=== PATIENT | female | born 1995 | race Caucasian/White ===

== ENCOUNTER 2016-07-29 17:11 | Emergency (ER) | payer MEDICARE, MEDICAID ==
[~2016-07-29 17:11] MED LIST: /BUSP5TA; IBUP600T26 PO; augmentin
--- NOTE | 2016-07-29 19:43 | EDDOCDS ---
Nurse's Notes [facility] Name: Jose David Ivory Age: 21 yrs Sex: Female : 1995 Arrival Date: 07/29/2016 Time: 17:11 Bed TR7 Private MD: NO PRIMARY PHYSICIAN, . Diagnosis: Irregular menstruation, unspecified Presentation: 07/29 17:26 Presenting complaint: Patient states: patient states period was 1 day last month and hs1 then reported that she was late this month. Patient reported that she had lots of bleeding earlier today soaking through super tampon last night and found lots of blood in pants when she woke up. Patient concerned that she might be having a miscarriage. Risk factors: The patient reports no loss of conciousness prior to arrival. This patient has not had a hysterectomy. This patient has not begun menopause. Adult Sepsis Screening: The patient does not have new or worsening altered mentation. Patient's respiratory rate is less than 22. Systolic blood pressure is greater than 100. Patient has a qSOFA score of 0- Negative Sepsis Screen. Suicide/Homicide risk assessment- the patient denies having any suicidal and/or homicidal ideations and does not present with any other emotional, behavioral or mental health complaints. Status: Patient is not a residential service technician or dependent. Transition of care: patient was not received from another setting of care. 17:26 Acuity: CA Level 3 hs1 17:26 Method Of Arrival: Walkin/Carried/Asstd hs1 Triage Assessment: 17:30 General: Appears in no apparent distress, Behavior is anxious, cooperative. Pain: hs1 Location: pelvis Pain currently is 5 out of 10 on a pain scale. Quality of pain is described as crampy. HIV screening NA for this visit Offered previously. : Reports vaginal bleeding that is heavy flow. 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 none - PMHx: Schizo-Affective Disorder; - PSHx: none; - Social history: Smoking status: Patient uses tobacco products, heavy tobacco smoker. No barriers to communication noted, The patient speaks fluent Danish, Speaks appropriately for age. - Family history: Not pertinent. - : The pt / caregiver states he / she is not on anticoagulants. Home medication list is obtained from the patient. - Exposure Risk Screening:: None identified. Screenin:41 Screening information is obtained from the patient. Fall risk: No risks identified. pml Assistance ADL's: requires no assistance with activities of daily living. Abuse/DV Screen: The patient / caregiver reports he/she is: not in a situation that causes fear, pain or injury. Nutritional screening: No deficits noted. Advance Directives: Currently, there is no health care proxy. home support is adequate. Assessment: 19:41 General: Appears in no apparent distress, comfortable, Behavior is appropriate for age, pml cooperative. Pain: Location: right lower quadrant and left lower quadrant Pain currently is 5 out of 10 on a pain scale. Neurological: Level of Consciousness is awake, alert, Oriented to person, place, time. Cardiovascular: Capillary refill < 3 seconds. Respiratory: Airway is patent Respiratory effort is even, unlabored. GI: Abdomen is non- distended. : Vaginal discharge is julissa blood. Derm: Skin is pink, warm & dry. Vital Signs: 17:13 BP 115 / 71; Pulse 85; Resp 18 S; Temp 96.8(O); Pulse Ox 99% on R/A; Weight 47.63 kg dd6 (R); Height 5 ft. 3 in. (160.02 cm) (R); 17:13 Body Mass Index 18.60 (47.63 kg, 160.02 cm) dd6 Vitals: 17:13 Log In Time: July 29, 2016 at 17:11. dd6 ED Course: 17:13 Patient visited by Santosh Logan PCA. dd6 17:13 NO PRIMARY PHYSICIAN, . is Private Physician. dd6 17:13 Patient moved to Waiting dd6 17:14 Patient moved to Pre RCE dd6 17:29 Triage Initiated hs1 18:43 Patient moved to Triage 1 ar3 19:00 Will Walton PA-C is PHCP. cc10 19:00 Carl Ferreira MD is Attending Physician. cc10 19:01 Krzysztof Pradhan DO is Attending Physician. cc10 19:02 Patient visited by Will Walton PA-C. cc10 19:02 Patient visited by Will Walton PA-C. cc10 19:38 Taran Vasquez MD is Referral Physician. cc10 19:41 Patient moved to TR7 rashel 19:41 The patient / caregiver is instructed regarding the plan of care and ED course. Patient pml has correct armband on for positive identification. Bed in low position. Call light in reach. 19:41 No IV's were initiated during this patient's visit. No procedures done that require pml assistance. Point of Care Testing: Urine : 19:30 hCG Reading: Negative; Control Reading: Positive; jmb Ranges: Order Results: There are currently no results for this order. Outcome: 19:38 Discharge ordered by Provider. cc10 19:41 Discharge Assessment: Patient awake, alert and oriented x 3. No cognitive and/or pml functional deficits noted. Patient verbalized understanding of disposition instructions. patient administered narcotics - no. The following High Risk Discharge criteria are identified: None. Discharged to home ambulatory. Condition: good Condition: stable. Discharge instructions given to patient, Instructed on discharge instructions, follow up and referral plans. Demonstrated understanding of instructions, Pt was receptive of discharge instructions/ teaching. No special radiology studies were completed. Property sent home with patient. 19:43 Patient left the ED. pml Signatures: Santosh Logan, LUMBER STRAIGHTENED LUMBER STRAIGHTENED dd6 Jacquelyn Díaz, LUMBER STRAIGHTENED LUMBER STRAIGHTENED ar3 Sandy Ozuna RN RN hs1 Roslyn WaldenRN RN Yvon Hernandez RN RN jmb Coniski, Colin, PA-C PA-C cc10 MTDD
--- NOTE | 2016-07-29 19:43 | EDDOCDS ---
Physician Documentation [facility] Name: Jose David Ivory Age: 21 yrs Sex: Female : 1995 Arrival Date: 07/29/2016 Time: 17:11 Bed TR7 Private MD: NO PRIMARY PHYSICIAN, . Disposition: 07/29/16 19:38 Discharged to Home/Self Care. Impression: Irregular menstruation, unspecified. - Condition is Stable. - Discharge Instructions: Menorrhagia. - Medication Reconciliation form. - Follow up: Taran Vasquez MD; When: Call to arrange an appointment; Reason: Wound/Symptom Recheck, Recheck today's complaints, Continuance of care. - Problem is an ongoing problem. - Symptoms are unchanged. Historical: - Allergies: no known allergies; - Home Meds: 1. none - PMHx: Schizo-Affective Disorder; - PSHx: none; - Social history: Smoking status: Patient uses tobacco products, heavy tobacco smoker. No barriers to communication noted, The patient speaks fluent Kyrgyz, Speaks appropriately for age. - Family history: Not pertinent. - : The pt / caregiver states he / she is not on anticoagulants. Home medication list is obtained from the patient. - Exposure Risk Screening:: None identified. 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 3 in. (160.02 cm) (R); 17:13 Body Mass Index 18.60 (47.63 kg, 160.02 cm) dd6 MDM: 19:07 UCG by Nursing ordered. cc10 19:12 Financial registration complete. juan Point of Care Testing: Urine : 19:30 hCG Reading: Negative; Control Reading: Positive; den Ranges: Signatures: Sandy Ozuna RN RN hs1 Roslyn WaldenRN RN pml Will Walton, PA-C PA-C cc10 Clari Mckenna MTDD
--- NOTE | 2016-07-31 20:44 | EDDOCDS ---
Physician Documentation [facility] Name: Jose David Ivory Age: 21 yrs Sex: Female : 1995 Arrival Date: 07/29/2016 Time: 17:11 Bed TR7 Private MD: NO PRIMARY PHYSICIAN, . Disposition: 07/29/16 19:38 Discharged to Home/Self Care. Impression: Irregular menstruation, unspecified. - Condition is Stable. - Discharge Instructions: Menorrhagia. - Medication Reconciliation form. - Follow up: Taran Vasquez MD; When: Call to arrange an appointment; Reason: Wound/Symptom Recheck, Recheck today's complaints, Continuance of care. - Problem is an ongoing problem. - Symptoms are unchanged. Historical: - Allergies: no known allergies; - Home Meds: 1. none - PMHx: Schizo-Affective Disorder; - PSHx: none; - Social history: Smoking status: Patient uses tobacco products, heavy tobacco smoker. No barriers to communication noted, The patient speaks fluent Belarusian, Speaks appropriately for age. - Family history: Not pertinent. - : The pt / caregiver states he / she is not on anticoagulants. Home medication list is obtained from the patient. - Exposure Risk Screening:: None identified. 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 3 in. (160.02 cm) (R); 17:13 Body Mass Index 18.60 (47.63 kg, 160.02 cm) dd6 MDM: 19:07 UCG by Nursing ordered. cc10 19:12 Financial registration complete. b 19:44 [facility] Payment Agreement was scanned into [employer] and attached to record. gjb 07/30 11:15 T-Sheet-- Draft Copy was scanned into [employer] and attached to record. sofia Point of Care Testing: Urine : 07/29 19:30 hCG Reading: Negative; Control Reading: Positive; den Ranges: Signatures: Ayde Mckee, Reg Reg Sandy Sahni, RN RN hs1 Roslyn Walden,RN RN pml Will Walton, PA-C PA-C cc10 Clari Mckenna The chart was reviewed and I authenticate all verbal orders and agree with the evaluation and treatment provided.Attachments: 19:44 [facility] Payment Agreement gjrashel 07/30 11:15 T-Sheet-- Draft Copy gb Chart Complete MTDD
--- NOTE | 2016-07-31 20:44 | EDDOCDS ---
Nurse's Notes [facility] Name: Jose David Ivory Age: 21 yrs Sex: Female : 1995 Arrival Date: 07/29/2016 Time: 17:11 Bed TR7 Private MD: NO PRIMARY PHYSICIAN, . Diagnosis: Irregular menstruation, unspecified Presentation: 07/29 17:26 Presenting complaint: Patient states: patient states period was 1 day last month and hs1 then reported that she was late this month. Patient reported that she had lots of bleeding earlier today soaking through super tampon last night and found lots of blood in pants when she woke up. Patient concerned that she might be having a miscarriage. Risk factors: The patient reports no loss of conciousness prior to arrival. This patient has not had a hysterectomy. This patient has not begun menopause. Adult Sepsis Screening: The patient does not have new or worsening altered mentation. Patient's respiratory rate is less than 22. Systolic blood pressure is greater than 100. Patient has a qSOFA score of 0- Negative Sepsis Screen. Suicide/Homicide risk assessment- the patient denies having any suicidal and/or homicidal ideations and does not present with any other emotional, behavioral or mental health complaints. Status: Patient is not a patient services rep or dependent. Transition of care: patient was not received from another setting of care. 17:26 Acuity: CA Level 3 hs1 17:26 Method Of Arrival: Walkin/Carried/Asstd hs1 Triage Assessment: 17:30 General: Appears in no apparent distress, Behavior is anxious, cooperative. Pain: hs1 Location: pelvis Pain currently is 5 out of 10 on a pain scale. Quality of pain is described as crampy. HIV screening NA for this visit Offered previously. : Reports vaginal bleeding that is heavy flow. 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 none - PMHx: Schizo-Affective Disorder; - PSHx: none; - Social history: Smoking status: Patient uses tobacco products, heavy tobacco smoker. No barriers to communication noted, The patient speaks fluent Wolof, Speaks appropriately for age. - Family history: Not pertinent. - : The pt / caregiver states he / she is not on anticoagulants. Home medication list is obtained from the patient. - Exposure Risk Screening:: None identified. Screenin:41 Screening information is obtained from the patient. Fall risk: No risks identified. pml Assistance ADL's: requires no assistance with activities of daily living. Abuse/DV Screen: The patient / caregiver reports he/she is: not in a situation that causes fear, pain or injury. Nutritional screening: No deficits noted. Advance Directives: Currently, there is no health care proxy. home support is adequate. Assessment: 19:41 General: Appears in no apparent distress, comfortable, Behavior is appropriate for age, pml cooperative. Pain: Location: right lower quadrant and left lower quadrant Pain currently is 5 out of 10 on a pain scale. Neurological: Level of Consciousness is awake, alert, Oriented to person, place, time. Cardiovascular: Capillary refill < 3 seconds. Respiratory: Airway is patent Respiratory effort is even, unlabored. GI: Abdomen is non- distended. : Vaginal discharge is julissa blood. Derm: Skin is pink, warm & dry. Vital Signs: 17:13 BP 115 / 71; Pulse 85; Resp 18 S; Temp 96.8(O); Pulse Ox 99% on R/A; Weight 47.63 kg dd6 (R); Height 5 ft. 3 in. (160.02 cm) (R); 17:13 Body Mass Index 18.60 (47.63 kg, 160.02 cm) dd6 Vitals: 17:13 Log In Time: July 29, 2016 at 17:11. dd6 ED Course: 17:13 Patient visited by Santosh Logan PCA. dd6 17:13 NO PRIMARY PHYSICIAN, . is Private Physician. dd6 17:13 Patient moved to Waiting dd6 17:14 Patient moved to Pre RCE dd6 17:29 Triage Initiated hs1 18:43 Patient moved to Triage 1 ar3 19:00 Will Walton PA-C is PHCP. cc10 19:00 Carl Ferreira MD is Attending Physician. cc10 19:01 Krzysztof Pradhan DO is Attending Physician. cc10 19:02 Patient visited by Will Walton PA-C. cc10 19:02 Patient visited by Will Walton PA-C. cc10 19:38 Taran Vasquez MD is Referral Physician. cc10 19:41 Patient moved to TR7 [facility] 19:41 The patient / caregiver is instructed regarding the plan of care and ED course. Patient pml has correct armband on for positive identification. Bed in low position. Call light in reach. 19:41 No IV's were initiated during this patient's visit. No procedures done that require pml assistance. 19:44 [facility] Payment Agreement was scanned into [employer] and attached to record. gjb 07/30 11:15 T-Sheet-- Draft Copy was scanned into [employer] and attached to record. sofia Point of Care Testing: Urine : 07/29 19:30 hCG Reading: Negative; Control Reading: Positive; jm Ranges: Order Results: There are currently no results for this order. Outcome: 19:38 Discharge ordered by Provider. [facility] 19:41 Discharge Assessment: Patient awake, alert and oriented x 3. No cognitive and/or pml functional deficits noted. Patient verbalized understanding of disposition instructions. patient administered narcotics - no. The following High Risk Discharge criteria are identified: None. Discharged to home ambulatory. Condition: good Condition: stable. Discharge instructions given to patient, Instructed on discharge instructions, follow up and referral plans. Demonstrated understanding of instructions, Pt was receptive of discharge instructions/ teaching. No special radiology studies were completed. Property sent home with patient. 19:43 Patient left the ED. pml Signatures: Ayde Mckee, Reg Reg gb Doreen Santosh, LABORATORY ANIMAL FACILITY SUPERVISOR LABORATORY ANIMAL FACILITY SUPERVISOR dd6 Jacquelyn Díaz, LABORATORY ANIMAL FACILITY SUPERVISOR LABORATORY ANIMAL FACILITY SUPERVISOR ar3 Sandy Ozuna RN RN hs1 Rolsyn Walden RN RN pml Becker, Joshua, RN RN jmb Will Walton, PA-C PA-C [facility] Clari Mckenna Chart Complete MTDD
--- NOTE | 2016-07-31 20:44 | EDDOCDS ---
Physician Documentation [facility] Name: Jose David Ivory Age: 21 yrs Sex: Female : 1995 Arrival Date: 07/29/2016 Time: 17:11 Bed TR7 Private MD: NO PRIMARY PHYSICIAN, . Disposition: 07/29/16 19:38 Discharged to Home/Self Care. Impression: Irregular menstruation, unspecified. - Condition is Stable. - Discharge Instructions: Menorrhagia. - Medication Reconciliation form. - Follow up: Taran Vasquez MD; When: Call to arrange an appointment; Reason: Wound/Symptom Recheck, Recheck today's complaints, Continuance of care. - Problem is an ongoing problem. - Symptoms are unchanged. Historical: - Allergies: no known allergies; - Home Meds: 1. none - PMHx: Schizo-Affective Disorder; - PSHx: none; - Social history: Smoking status: Patient uses tobacco products, heavy tobacco smoker. No barriers to communication noted, The patient speaks fluent Ukrainian, Speaks appropriately for age. - Family history: Not pertinent. - : The pt / caregiver states he / she is not on anticoagulants. Home medication list is obtained from the patient. - Exposure Risk Screening:: None identified. 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 3 in. (160.02 cm) (R); 17:13 Body Mass Index 18.60 (47.63 kg, 160.02 cm) dd6 MDM: 19:07 UCG by Nursing ordered. cc10 19:12 Financial registration complete. b 19:44 [facility] Payment Agreement was scanned into [employer] and attached to record. gjb 07/30 11:15 T-Sheet-- Draft Copy was scanned into [employer] and attached to record. sofia Point of Care Testing: Urine : 07/29 19:30 hCG Reading: Negative; Control Reading: Positive; den Ranges: Signatures: Ayde Mckee, Reg Reg Sandy Sahni, RN RN hs1 Roslyn Walden,RN RN pml Will Walton, PA-C PA-C cc10 Clari Mckenna The chart was reviewed and I authenticate all verbal orders and agree with the evaluation and treatment provided.Attachments: 19:44 [facility] Payment Agreement gjrashel 07/30 11:15 T-Sheet-- Draft Copy gb Chart Complete MTDD
== END 2016-07-29 19:43 | disposition home or self-care (01) ==
LOC: M ED 17:11
DX: N92.0 Excessive and frequent menstruation with regular cycle (principal); F25.9 Schizoaffective disorder, unspecified; F17.200 Nicotine dependence, unspecified, uncomplicated

== ENCOUNTER 2016-09-15 12:54 | Emergency (ER) | payer MEDICARE, MEDICAID ==
[~2016-09-15] VITALS: Ht 160 cm; Wt 54.4 kg
[2016-09-15 15:36] VITALS: BP 107/67
--- NOTE | 2016-09-16 07:37 | REP ---
Pain after trauma. PRIORS: None. FINDINGS: There is no acute fracture, dislocation, subluxation or joint effusion. Signed by Yoni Muñoz DO 09/16/2016 12:05 P
== END 2016-09-15 15:37 | disposition home or self-care (01) ==
LOC: M ED 15:21
DX: S50.02XA Contusion of left elbow, initial encounter (principal); Y04.8XXA Assault by other bodily force, initial encounter; Y92.098 Other place in other non-institutional residence as the place of occurrence of the external cause; Y93.89 Activity, other specified; Y99.8 Other external cause status; F17.200 Nicotine dependence, unspecified, uncomplicated

== ENCOUNTER 2016-11-27 11:00 | Emergency (ER) | payer MEDICARE, MEDICAID ==
[~2016-11-27] VITALS: Ht 160 cm; Wt 47.6 kg
[2016-11-27] MEDS ORDERED: METOCLOPRAMIDE 10 MG TAB PO ONE (12:30)
[2016-11-27] MEDS ORDERED: ONDANSETRON 4 MG ORAL DISINTEGRATING TAB (S0181) PO ONE (12:30)
[2016-11-27 12:36] VITALS: BP 103/71
[2016-11-27] MEDS ORDERED: REGL10TA6 PO (12:40)
== END 2016-11-27 12:46 | disposition home or self-care (01) ==
LOC: M ED 12:36
DX: R11.2 Nausea with vomiting, unspecified (principal); Z32.01 Encounter for pregnancy test, result positive; F41.9 Anxiety disorder, unspecified; F17.210 Nicotine dependence, cigarettes, uncomplicated

== ENCOUNTER → 2016-11-28 | Outpatient (REF) | payer MEDICARE, MEDICAID ==
[~2016-11-28] MED LIST changes: +REGL10TA6 PO
[2016-11-28 17:19] LABS: MEAN CORPUSCULAR HEMOGLOBIN 32.4 pg (27.0-33.0); RED CELL DISTRIBUTION WIDTH 12.3 % (11.5-14.5); WHITE BLOOD COUNT 7.9 K/mm3 (4.0-10.0)
[2016-11-28 19:27] LABS: HCG, SERUM QUANTITATIVE 29903 MIU/ML
== END ==
LOC: M LAB REF 16:35
PROVIDERS: ATTEND Obstetrics & Gynecology
DX: O36.80X0 Pregnancy with inconclusive fetal viability, not applicable or unspecified (principal); Z3A.00 Weeks of gestation of pregnancy not specified

== ENCOUNTER → 2017-01-08 | Outpatient (REF) | payer MEDICARE, MEDICAID ==
[~2017-01-08] MED LIST changes: +NITR100C2
== END ==
LOC: M LAB REF 16:48
PROVIDERS: ATTEND Advanced Practice Midwife
DX: Z34.91 Encounter for supervision of normal pregnancy, unspecified, first trimester (principal); Z79.899 Other long term (current) drug therapy

== ENCOUNTER → 2017-02-05 | Outpatient (REF) | payer MEDICARE, MEDICAID | LOC: M LAB REF 16:35 | PROVIDERS: ATTEND Obstetrics & Gynecology | DX: Z34.81 Encounter for supervision of other normal pregnancy, first trimester (principal); Z79.899 Other long term (current) drug therapy ==

== ENCOUNTER 2017-02-12 22:10 | Emergency (ER) | payer MEDICARE, MEDICAID ==
[~2017-02-12] VITALS: Ht 160 cm; Wt 45.8 kg
[~2017-02-12 22:10] MED LIST changes: -NITR100C2
[2017-02-12] MEDS ORDERED: NITR100C2 (22:20)
[2017-02-12] MEDS ORDERED: METOCLOPRAMIDE INJ 10MG/2ML VIAL (J2765) IV ONE (22:45)
[2017-02-12] MEDS ORDERED: diphenhydrAMINE INJ 50MG/ML VIAL (J1200) IV ONE (22:45)
[2017-02-12] MEDS ORDERED: NS 1,000 ML IV ONE (22:45)
[2017-02-12 23:07] LABS: ADD MANUAL DIFFER YES; MEAN CORPUSCULAR HEMOGLOBIN 32.8 pg (27.0-33.0); MEAN CORPUSCULAR VOLUME 93.6 fl (80.0-96.0); PLATELET COUNT, AUTOMATED 265 k/mm3 (150-450); RED CELL DISTRIBUTION WIDTH 13.9 % (11.5-14.5); WHITE BLOOD COUNT 12.9 K/mm3 (4.0-10.0)
[2017-02-12 23:37] LABS: ALBUMIN 3.6 GM/DL (3.2-5.2); ALKALINE PHOSPHATASE 59 U/L (45-117); ALT/SGPT 29 U/L (12-78); AMYLASE 56 U/L (25-115); ANION GAP 9 MEQ/L (8-16); AST/SGOT 18 U/L (15-37); BILIRUBIN,DIRECT 0.2 MG/DL (0.0-0.2); BLOOD UREA NITROGEN 11 MG/DL (7-18); CALCIUM LEVEL 8.8 MG/DL (8.5-10.1); CARBON DIOXIDE LEVEL 24 MEQ/L (21-32); CHLORIDE LEVEL 105 MEQ/L (98-107); CREATININE FOR GFR 0.64 MG/DL (0.55-1.02); GLOMERULAR FILTRATION RATE > 60.0 (>60); GLUCOSE, FASTING 83 MG/DL (70-105); POTASSIUM SERUM 4.2 MEQ/L (3.5-5.1); SODIUM LEVEL 138 MEQ/L (136-145); TOTAL PROTEIN 7.6 GM/DL (6.4-8.2)
[2017-02-12] MEDS ORDERED: REGL10TA6 PO (23:51)
[2017-02-12 23:57] VITALS: BP 102/60
== END 2017-02-13 00:02 | disposition home or self-care (01) ==
LOC: M ED 22:10
DX: O21.9 Vomiting of pregnancy, unspecified (principal); Z3A.17 17 weeks gestation of pregnancy; O99.342 Other mental disorders complicating pregnancy, second trimester; F41.9 Anxiety disorder, unspecified; Z79.899 Other long term (current) drug therapy
CPT/HCPCS: 80048; 80076; 81001; 82150; 83690; 85025; 87086; 96374; 96375; 99283; J1200; J2765

== ENCOUNTER → 2017-04-16 | Outpatient (CLI) | payer MEDICARE, MEDICAID ==
[~2017-04-16] MED LIST changes: +NITR100C2
[2017-04-16 16:30] LABS: MEAN CORPUSCULAR HEMOGLOBIN 32.2 pg (27.0-33.0); MEAN CORPUSCULAR HGB CONC 34.5 g/dl (32.0-36.5); MEAN CORPUSCULAR VOLUME 93.4 fl (80.0-96.0); RED CELL DISTRIBUTION WIDTH 13.1 % (11.5-14.5)
== END ==
LOC: M LAB 14:56
PROVIDERS: ATTEND Obstetrics & Gynecology
DX: Z34.82 Encounter for supervision of other normal pregnancy, second trimester (principal)
CPT/HCPCS: 36415; 82950; 85027; 86850; 86901; J2790

== ENCOUNTER → 2017-04-30 | Outpatient (REF) | payer MEDICARE, MEDICAID | LOC: M LAB REF 16:35 | PROVIDERS: ATTEND Obstetrics & Gynecology | DX: Z41.8 Encounter for other procedures for purposes other than remedying health state (principal); Z79.899 Other long term (current) drug therapy ==

== ENCOUNTER → 2017-06-26 | Outpatient (REF) | payer MEDICARE, MEDICAID | LOC: M LAB REF 16:35 | PROVIDERS: ATTEND Obstetrics & Gynecology | DX: Z34.83 Encounter for supervision of other normal pregnancy, third trimester (principal); Z3A.36 36 weeks gestation of pregnancy ==

== ENCOUNTER 2017-07-08 07:56 | Inpatient (IN) | payer MEDICARE, MEDICAID ==
[2017-07-08] MEDS ORDERED: LR 1,000 ML IV (08:24)
[2017-07-08] MEDS: LACTATED RINGER'S 1000 ML IV (08:24)
[2017-07-08] MEDS ORDERED: OXYTOCIN 30 UNITS IN 0.9% NaCl 500ML IV BAG (J2590) As Ordered (08:59)
[2017-07-08] MEDS: PRENATAL VITAMINS CHEWABLE TABLET PO (09:00)
[2017-07-08 09:02] LABS: BASO % 0.1 % (0.0-1.0); EOS % 0.1 % (0.0-3.0); HEMATOCRIT 35.6 % (36.0-47.0); HEMOGLOBIN 11.7 g/dl (12.0-16.0); IMMATURE GRANULOCYTE # 0.1 10^3/uL (0-0); IMMATURE GRANULOCYTE % 0.5 % (0-0); LYMPH # 1.8 10^3/uL (1.5-6.5); LYMPH % 12.4 % (24.0-44.0); MEAN CORPUSCULAR HEMOGLOBIN 27.9 pg (27.0-33.0); MEAN CORPUSCULAR HGB CONC 32.9 g/dl (32.0-36.5); MONO # 0.7 10^3/uL (0.0-0.8); MONO % 5.1 % (0.0-5.0); NEUTROPHILS # 11.5 10^3/uL (1.8-7.7); NEUTROPHILS % 81.8 % (36.0-66.0); PLATELET COUNT, AUTOMATED 194 10^3/uL (150-450); RED BLOOD COUNT 4.19 10^6/uL (4.00-5.40); RED CELL DISTRIBUTION WIDTH 13.9 % (11.5-14.5); WHITE BLOOD COUNT 14.1 10^3/uL (4.0-10.0)
[2017-07-08 09:22] LABS: AMPHETAMINES URINE REFLEX NEGATIVE (NEGATIVE); BARBITURATES URINE REFLEX NEGATIVE (NEGATIVE); BENZODIAZEPINES URINE REFLEX NEGATIVE (NEGATIVE); CANNABINOIDS URINE REFLEX NEGATIVE (NEGATIVE); COCAINE METABOLITE URINE REFLE NEGATIVE (NEGATIVE); METHADONE URINE REFLEX NEGATIVE (NEGATIVE); OPIATES URINE REFLEX NEGATIVE (NEGATIVE); PHENCYCLIDINE URINE REFLEX NEGATIVE (NEGATIVE)
[2017-07-08] MEDS ORDERED: FENTANYL 2MCG/ML ROPIVACAINE 0.2% IN 0.9% NACL 200ML IVBAG As Ordered (10:49)
[2017-07-08] MEDS: OXYTOCIN DRIP 30 UNITS in APPROPRIATE DILUENT 1 EA IV (11:27)
[2017-07-08] MEDS ORDERED: DIBUCAINE 1% OINTMENT 30GM TOP (11:30)
[2017-07-08] MEDS ORDERED: METHYLERGONOVINE MALEATE 0.2 MG TAB PO (11:30)
[2017-07-08] MEDS ORDERED: MEASLES,MUMPS,RUBELLA VACCINE INJ (MMR-II) (90707) SC (11:30)
[2017-07-08] MEDS: IBUPROFEN 800 MG TAB PO ×2 (13:11→23:04)
[2017-07-08 14:51] LABS: FETAL SCREEN PROF. 1 1
[2017-07-08] MEDS: RHOGAM 300 MCG (1500 IU) INJ (J2790) IM (15:06)
[2017-07-09] MEDS: ACETAMINOPHEN 500 MG TAB PO (05:43)
[2017-07-09] MEDS: IBUPROFEN 800 MG TAB PO ×2 (08:20→19:35)
[2017-07-09] MEDS: PRENATAL VITAMINS CHEWABLE TABLET PO (08:20)
[2017-07-09] MEDS: DOCUSATE SODIUM 100 MG CAP PO (22:30)
[2017-07-10] MEDS: IBUPROFEN 800 MG TAB PO ×2 (03:40→08:20)
[2017-07-10] MEDS: PRENATAL VITAMINS CHEWABLE TABLET PO (08:19)
[2017-07-10] MEDS: ACETAMINOPHEN 500 MG TAB PO (08:28)
== END 2017-07-10 10:50 | disposition home or self-care (01) | DRG 775 ==
LOC: M LDO 07:56 → M LDI 08:16 → M OBS 13:34
PROVIDERS: Obstetrics & Gynecology
PROC: 10E0XZZ Delivery of Products of Conception, External Approach (ICD-10-PCS; principal; 2017-07-08)
DX: O62.3 Precipitate labor (principal); O99.334 Smoking (tobacco) complicating childbirth; F17.210 Nicotine dependence, cigarettes, uncomplicated; Z3A.37 37 weeks gestation of pregnancy; Z37.0 Single live birth

== ENCOUNTER 2017-08-21 01:57 | Emergency (ER) | payer MEDICARE, MEDICAID | END 2017-08-21 05:01 | disposition left against medical advice (07) | LOC: M ED 01:57 | DX: Z53.29 Procedure and treatment not carried out because of patient's decision for other reasons (principal) ==

== ENCOUNTER 2017-10-01 06:19 | Emergency (ER) | payer MEDICARE, MEDICAID ==
[2017-10-01] MEDS: NS 1,000 ML IV (06:45)
[2017-10-01] MEDS: METOCLOPRAMIDE INJ 10MG/2ML VIAL (J2765) IV ×2 (06:56→08:49)
[2017-10-01 07:06] LABS: BASO # 0.1 10^3/uL (0.0-0.2); BASO % 0.5 % (0.0-1.0); HEMATOCRIT 40.5 % (36.0-47.0); HEMOGLOBIN 14.3 g/dl (12.0-16.0); IMMATURE GRANULOCYTE % 0.3 % (0-3.0); LYMPH # 2.1 10^3/uL (1.5-6.5); LYMPH % 21.3 % (24.0-44.0); MEAN CORPUSCULAR HEMOGLOBIN 28.7 pg (27.0-33.0); MEAN CORPUSCULAR HGB CONC 35.3 g/dl (32.0-36.5); MEAN CORPUSCULAR VOLUME 81.3 fl (80.0-96.0); MONO # 0.6 10^3/uL (0.0-0.8); MONO % 5.6 % (0.0-5.0); NEUTROPHILS # 7.3 10^3/uL (1.8-7.7); NEUTROPHILS % 72.3 % (36.0-66.0); PLATELET COUNT, AUTOMATED 336 10^3/uL (150-450); RED BLOOD COUNT 4.98 10^6/uL (4.00-5.40); RED CELL DISTRIBUTION WIDTH 14.1 % (11.5-14.5); WHITE BLOOD COUNT 10.1 10^3/uL (4.0-10.0)
[2017-10-01 07:14] LABS: APPEARANCE, URINE CLEAR (CLEAR); BACTERIA, URINE AUTO 1+ (NEGATIVE); BILIRUBIN, URINE AUTO NEGATIVE (NEGATIVE); BLOOD, URINE BLOOD 1+ (NEGATIVE); COLOR, URINE YELLOW (YELLOW); GLUCOSE, URINE (UA) AUTO NEGATIVE (NEGATIVE); KETONE, URINE AUTO TRACE mg/dL (NEGATIVE); LEUKOCYTE ESTERASE, URINE AUTO NEGATIVE (NEGATIVE); MUCUS, URINE SMALL (NEGATIVE); NITRITE, URINE AUTO NEGATIVE (NEGATIVE); PROTEIN, URINE AUTO 1+ mg/dL (NEGATIVE); RBC, URINE AUTO 1 /HPF (0-3); SPECIFIC GRAVITY URINE AUTO 1.023 (1.002-1.035); SQUAMOUS EPITHELIAL CELL UR AU 3 /HPF (0-6); WBC, URINE AUTO 2 /HPF (0-3)
[2017-10-01 07:16] LABS: CONTROL LINE HCG INT CTR LINE PRESENT; HCG, SERUM QUALITATIVE NEGATIVE (NEGATIVE)
[2017-10-01 07:24] LABS: ALBUMIN 4.6 GM/DL (3.2-5.2); ALBUMIN/GLOBULIN RATIO 1.21 (1.00-1.93); ALKALINE PHOSPHATASE 66 U/L (45-117); ALT/SGPT 55 U/L (12-78); ANION GAP 9 MEQ/L (8-16); AST/SGOT 25 U/L (7-37); BILIRUBIN,DIRECT 0.2 MG/DL (0.0-0.2); BLOOD UREA NITROGEN 8 MG/DL (7-18); CALCIUM LEVEL 9.6 MG/DL (8.5-10.1); CARBON DIOXIDE LEVEL 21 MEQ/L (21-32); CHLORIDE LEVEL 112 MEQ/L (98-107); GLOMERULAR FILTRATION RATE > 60.0 (>60); GLUCOSE, FASTING 103 MG/DL (70-100); LIPASE 70 U/L (73-393); POTASSIUM SERUM 4.1 MEQ/L (3.5-5.1); SODIUM LEVEL 142 MEQ/L (136-145); TOTAL PROTEIN 8.4 GM/DL (6.4-8.2)
== END 2017-10-01 10:07 | disposition home or self-care (01) ==
LOC: M ED 06:19
DX: K52.9 Noninfective gastroenteritis and colitis, unspecified (principal); E86.9 Volume depletion, unspecified; F17.200 Nicotine dependence, unspecified, uncomplicated; Z79.899 Other long term (current) drug therapy
CPT/HCPCS: J2765

== ENCOUNTER → 2018-04-06 | Outpatient (CLI) | payer MEDICARE, MEDICAID ==
[2018-04-06 18:25] LABS: HCG, SERUM QUANTITATIVE < 1.0 MIU/ML
== END ==
LOC: M SMT 13:49
DX: N93.9 Abnormal uterine and vaginal bleeding, unspecified (principal); Z11.2 Encounter for screening for other bacterial diseases
CPT/HCPCS: 84702

== ENCOUNTER → 2018-04-06 | Outpatient (REF) | payer MEDICARE, MEDICAID ==
[2018-04-07 08:03] LABS: CHLAMYDIA DNA AMPLIFICATION NEGATIVE (NEGATIVE); GC DNA AMPLIFICATION NEGATIVE (NEGATIVE)
== END ==
LOC: M LAB REF 17:49
DX: N93.9 Abnormal uterine and vaginal bleeding, unspecified (principal); Z11.2 Encounter for screening for other bacterial diseases

== ENCOUNTER → 2018-06-08 | Outpatient (CLI) | payer MEDICARE, OTHER, MEDICAID | LOC: M RAD 12:35 | DX: R93.7 Abnormal findings on diagnostic imaging of other parts of musculoskeletal system (principal); M25.532 Pain in left wrist | CPT/HCPCS: 73221 ==

== ENCOUNTER 2018-07-21 21:23 | Emergency (ER) | payer MEDICARE ==
[~2018-07-21] VITALS: Ht 160 cm; Wt 44.7 kg
[~2018-07-21 21:23] MED LIST changes: +IBUP-1114 PO; +MAPA500T2 PO; +PRENTAB9 PO
[2018-07-21 22:23] LABS: HEMATOCRIT 35.8 % (36.0-47.0); HEMOGLOBIN 12.8 g/dl (12.0-15.5); MEAN CORPUSCULAR HEMOGLOBIN 31.1 pg (27.0-33.0); MEAN CORPUSCULAR HGB CONC 35.8 g/dl (32.0-36.5); MEAN CORPUSCULAR VOLUME 86.9 fl (80.0-96.0); PLATELET COUNT, AUTOMATED 213 10^3/uL (150-450); RED BLOOD COUNT 4.12 10^6/uL (4.00-5.40); WHITE BLOOD COUNT 7.4 10^3/uL (4.0-10.0)
[2018-07-21] MEDS ORDERED: HYDR-643 (22:30)
[2018-07-21] MEDS ORDERED: SERT-155 (22:30)
[2018-07-21 22:34] LABS: INR 1.07
[2018-07-22] MEDS ORDERED: RHOGAM 300 MCG (1500 IU) INJ (J2790) IM ONE (00:15)
[2018-07-22 00:45] VITALS: BP 97/58
--- NOTE | 2018-07-22 00:57 | REPVR ---
EXAM: US First Trimester, Transabdominal and US , Transvaginal EXAM DATE/TIME: 07/21/2018 12:04 AM CLINICAL HISTORY: 23 years old, female; Signs and symptoms; Lmp or gestational age (in weeks): 06/07/18; Antepartum complications; Bleeding; TECHNIQUE: Real-time sonographic evaluation of the gravid uterus and its contents was performed. COMPARISON: No relevant prior studies available. FINDINGS: There is a single intrauterine gestation. The embryonic heart rate was measured at 106 beats per minute. The mean crown-rump length is 0.3 cm, corresponding to an estimated gestational age of 5 weeks, 6 days. The estimated gestational age based on the last menstrual period (06/07/2018) is 6 weeks, 2 days. The sonographic estimated date of delivery is 03/17/2019. Both maternal ovaries are identified and demonstrate blood flow on Doppler interrogation. The right ovary measures 2.8 x 2.7 x 2.7 cm and the left ovary measures 2.3 x 1.6 x 1.9 cm. There is a 2.2 x 1.9 x 1.7 cm complex cystic lesion in the right ovary, suggestive of a corpus luteum. There is no adnexal mass. No free fluid is seen in the pelvis. IMPRESSION: Single viable intrauterine gestation with an estimated gestational age of 5 weeks, 6 days. Recommend continued clinical and ultrasound surveillance, as clinically indicated. Electronically signed by: Kings Lei On 07/22/2018 00:57:02 AM
== END 2018-07-22 00:45 | disposition home or self-care (01) ==
LOC: M ED 21:23
DX: O20.0 Threatened abortion (principal); Z3A.01 Less than 8 weeks gestation of pregnancy; Z79.899 Other long term (current) drug therapy
CPT/HCPCS: 76801; 76817; 84702; 85027; 85610; 86850; 86900; 86901; 93976; 96372; 99283; J2790

== ENCOUNTER → 2018-07-23 | Outpatient (CLI) | payer MEDICARE, MEDICAID ==
[~2018-07-23] MED LIST changes: +HYDR-643; +SERT-155
== END ==
LOC: M LAB 16:41
PROVIDERS: ATTEND Nurse Practitioner Family
DX: O20.0 Threatened abortion (principal)

== ENCOUNTER → 2018-08-28 | Outpatient (CLI) | payer MEDICARE, MEDICAID ==
[2018-08-28 15:02] LABS: BASO % 0.5 % (0.0-1.0); EOS % 0.5 % (0.0-3.0); HEMATOCRIT 35.2 % (36.0-47.0); HEMOGLOBIN 12.2 g/dl (12.0-15.5); LYMPH # 1.9 10^3/uL (1.5-6.5); LYMPH % 22.9 % (24.0-44.0); MEAN CORPUSCULAR HEMOGLOBIN 31.8 pg (27.0-33.0); MEAN CORPUSCULAR HGB CONC 34.7 g/dl (32.0-36.5); MEAN CORPUSCULAR VOLUME 91.7 fl (80.0-96.0); MONO # 0.5 10^3/uL (0.0-0.8); MONO % 6.4 % (0.0-5.0); NEUTROPHILS # 5.7 10^3/uL (1.8-7.7); NEUTROPHILS % 69.2 % (36.0-66.0); PLATELET COUNT, AUTOMATED 281 10^3/uL (150-450); RED BLOOD COUNT 3.84 10^6/uL (4.00-5.40); WHITE BLOOD COUNT 8.3 10^3/uL (4.0-10.0)
[2018-08-28 16:14] LABS: HEPATITIS C VIRUS ABY INDEX < 0.0 INDEX (<0.8); HIV 1&2 SCREEN CENTAUR NEGATIVE (NEGATIVE); RUBELLA IgG QUALITATIVE IMMUNE (IMMUNE)
[2018-08-28 16:36] LABS: CHLAMYDIA DNA AMPLIFICATION NEGATIVE (NEGATIVE); GC DNA AMPLIFICATION NEGATIVE (NEGATIVE)
== END ==
LOC: M LAB 14:17
PROVIDERS: ATTEND Obstetrics & Gynecology
DX: Z34.80 Encounter for supervision of other normal pregnancy, unspecified trimester (principal); Z3A.08 8 weeks gestation of pregnancy

== ENCOUNTER → 2018-09-08 | Outpatient (REF) | payer MEDICARE, MEDICAID | LOC: M LAB REF 17:08 | PROVIDERS: ATTEND Obstetrics & Gynecology | DX: R30.0 Dysuria (principal) ==

== ENCOUNTER 2018-09-14 16:22 | Emergency (ER) | payer MEDICARE, MEDICAID ==
[~2018-09-14] VITALS: Ht 160 cm; Wt 51.4 kg
[2018-09-14 18:54] LABS: BASO % 0.1 % (0.0-1.0); HEMATOCRIT 31.7 % (36.0-47.0); HEMOGLOBIN 11.3 g/dl (12.0-15.5); LYMPH # 0.6 10^3/uL (1.5-6.5); LYMPH % 4.3 % (24.0-44.0); MEAN CORPUSCULAR HEMOGLOBIN 32.8 pg (27.0-33.0); MEAN CORPUSCULAR HGB CONC 35.6 g/dl (32.0-36.5); MEAN CORPUSCULAR VOLUME 91.9 fl (80.0-96.0); MONO # 1.1 10^3/uL (0.0-0.8); MONO % 7.9 % (0.0-5.0); NEUTROPHILS # 12.1 10^3/uL (1.8-7.7); NEUTROPHILS % 87.1 % (36.0-66.0); PLATELET COUNT, AUTOMATED 226 10^3/uL (150-450); RED BLOOD COUNT 3.45 10^6/uL (4.00-5.40); WHITE BLOOD COUNT 13.9 10^3/uL (4.0-10.0)
[2018-09-14 19:25] LABS: ALT/SGPT 14 U/L (12-78); BILIRUBIN,TOTAL 1.2 MG/DL (0.2-1.0); BLOOD UREA NITROGEN 7 MG/DL (7-18); CALCIUM LEVEL 8.4 MG/DL (8.5-10.1); CARBON DIOXIDE LEVEL 25 MEQ/L (21-32); CHLORIDE LEVEL 104 MEQ/L (98-107); CREATININE FOR GFR 0.65 MG/DL (0.55-1.30); GLOMERULAR FILTRATION RATE > 60.0 (>60); GLUCOSE, FASTING 87 MG/DL (70-100); POTASSIUM SERUM 3.6 MEQ/L (3.5-5.1); SODIUM LEVEL 137 MEQ/L (136-145); TOTAL PROTEIN 6.5 GM/DL (6.4-8.2)
[2018-09-14] MEDS ORDERED: ONDANSETRON 4 MG ORAL DISINTEGRATING TAB (Q0162 PER 1MG) PO ONE (19:45)
[2018-09-14] MEDS ORDERED: CEPHALEXIN 500 MG CAP PO ONE (19:45)
[2018-09-14 19:55] VITALS: BP 91/55
[2018-09-17] MEDS ORDERED: KEFL500C17 PO (04:59)
[2018-09-17] MEDS ORDERED: PROC25SU24 PR (10:32)
[2018-09-17] MEDS ORDERED: PROM12.56 PO (10:34)
== END 2018-09-14 20:01 | disposition home or self-care (01) ==
LOC: M ED 16:22
DX: O23.41 Unspecified infection of urinary tract in pregnancy, first trimester (principal); Z3A.13 13 weeks gestation of pregnancy
CPT/HCPCS: 36415; 80053; 81001; 85025; 87088; 87186; 99283; Q0162

== ENCOUNTER → 2018-10-01 | Outpatient (REF) | payer MEDICARE, MEDICAID ==
[~2018-10-01] MED LIST changes: +KEFL500C17 PO; +PROC25SU24 PR; +PROM12.56 PO
== END ==
LOC: M LAB REF 17:22
PROVIDERS: ATTEND Obstetrics & Gynecology
DX: Z34.82 Encounter for supervision of other normal pregnancy, second trimester (principal); Z3A.00 Weeks of gestation of pregnancy not specified

== ENCOUNTER → 2018-10-13 | Outpatient (CLI) | payer MEDICARE, MEDICAID ==
--- NOTE | 2018-10-14 04:28 | REP ---
Clinical: Anatomical evaluation. Comparison: 07/21/2018 . Findings: Examination demonstrates a single live intrauterine in cephalic presentation. motion is identified by technologist. Placenta is noted anterior and grade grade zero without evidence for placenta previa or abruption. Amniotic fluid volume is normal. Cervix measures 4.4 cm in length and appears closed. No evidence for nuchal cord. Gestational age by LMP 18 weeks 2 days with TRICIA 03/14/2019 Gestational age by current measurements 18 weeks 0 days with TRICIA 03/16/2019 . FHR equals 153 beats per minute. BPD 3.7 cm 17 weeks 2 days HC 14.8 cm 18 weeks 0 days AC 13.0 cm 18 weeks 4 days FL 2.8 cm 18 weeks 4 days HC/AC ratio 1.14 Estimated weight 239 grams ( 51st percentile). Anatomical assessment demonstrates normal structures including cranium, choroid plexus, cavum, cerebellum/posterior fossa, facial features, lungs, four-chamber heart/ventricular outflow tracts, diaphragm, stomach, cord insertion/three-vessel cord, kidneys/bladder, spine, and extremities. Impression: Single live intrauterine in cephalic presentation demonstrating appropriate interval growth. Anatomical assessment is complete and normal. No gross abnormalities are identified.
== END ==
LOC: M WHC 14:05
PROVIDERS: ATTEND Obstetrics & Gynecology
DX: Z34.82 Encounter for supervision of other normal pregnancy, second trimester (principal); Z3A.18 18 weeks gestation of pregnancy

== ENCOUNTER → 2018-10-28 | Outpatient (REF) | payer MEDICARE, MEDICAID | LOC: M LAB REF 17:30 | PROVIDERS: ATTEND Advanced Practice Midwife | DX: Z34.82 Encounter for supervision of other normal pregnancy, second trimester (principal); Z3A.00 Weeks of gestation of pregnancy not specified ==

== ENCOUNTER → 2018-12-16 | Outpatient (CLI) | payer MEDICARE, MEDICAID ==
[2018-12-16 15:35] LABS: HEMATOCRIT 28.8 % (36.0-47.0); HEMOGLOBIN 9.8 g/dl (12.0-15.5); MEAN CORPUSCULAR HEMOGLOBIN 31.8 pg (27.0-33.0); MEAN CORPUSCULAR VOLUME 93.5 fl (80.0-96.0); PLATELET COUNT, AUTOMATED 192 10^3/uL (150-450); RED BLOOD COUNT 3.08 10^6/uL (4.00-5.40); WHITE BLOOD COUNT 9.1 10^3/uL (4.0-10.0)
== END ==
LOC: M LAB 13:52
PROVIDERS: ATTEND Obstetrics & Gynecology
DX: Z34.82 Encounter for supervision of other normal pregnancy, second trimester (principal); Z3A.00 Weeks of gestation of pregnancy not specified
CPT/HCPCS: 36415; 82950; 85027; 86850; 86900; 86901; 87088; 87186; J2790

== ENCOUNTER → 2019-01-06 | Outpatient (REF) | payer MEDICARE, MEDICAID | LOC: M LAB REF 16:53 | PROVIDERS: ATTEND Advanced Practice Midwife | DX: Z34.03 Encounter for supervision of normal first pregnancy, third trimester (principal) ==

== ENCOUNTER → 2019-02-10 | Outpatient (REF) | payer MEDICARE, MEDICAID | LOC: M LAB REF 17:05 | PROVIDERS: ATTEND Advanced Practice Midwife | DX: Z34.83 Encounter for supervision of other normal pregnancy, third trimester (principal) ==

== ENCOUNTER → 2019-02-16 | Outpatient (REF) | payer MEDICARE, MEDICAID | LOC: M LAB REF 18:04 | PROVIDERS: ATTEND Advanced Practice Midwife | DX: Z34.83 Encounter for supervision of other normal pregnancy, third trimester (principal); Z3A.00 Weeks of gestation of pregnancy not specified ==

== ENCOUNTER 2019-02-24 03:03 | Outpatient (CLI) | payer MEDICARE, MEDICAID ==
[~2019-02-24] VITALS: Ht 160 cm; Wt 51.8 kg
[2019-02-24 03:38] VITALS: BP 107/71
[2019-02-24 06:48] VITALS: BP 101/56
== END 2019-02-24 07:25 | disposition home or self-care (01) ==
LOC: M LDO 03:03
PROVIDERS: ATTEND Obstetrics & Gynecology
DX: O26.893 Other specified pregnancy related conditions, third trimester (principal); O47.03 False labor before 37 completed weeks of gestation, third trimester; Z3A.37 37 weeks gestation of pregnancy

== ENCOUNTER 2019-03-03 14:28 | Inpatient (IN) | payer MEDICARE, MEDICAID ==
[2019-03-03] VITALS (10 sets, daily range): BP systolic 95–117; BP diastolic 56–88
[~2019-03-03] VITALS: Ht 160 cm; Wt 52.3 kg
[2019-03-03] MEDS ORDERED: LR 1,000 ML IV SCH (17:01)
[2019-03-03] MEDS ORDERED: OXYTOCIN DRIP 30 UNITS in APPROPRIATE DILUENT 1 EA IV SCH ×2 (17:15→20:26)
[2019-03-03 17:43] LABS: HEMOGLOBIN 10.5 g/dl (12.0-15.5); MEAN CORPUSCULAR HEMOGLOBIN 28.2 pg (27.0-33.0); MEAN CORPUSCULAR HGB CONC 32.8 g/dl (32.0-36.5); MEAN CORPUSCULAR VOLUME 85.8 fl (80.0-96.0); PLATELET COUNT, AUTOMATED 235 10^3/uL (150-450); RED BLOOD COUNT 3.73 10^6/uL (4.00-5.40); WHITE BLOOD COUNT 8.2 10^3/uL (4.0-10.0)
[2019-03-03] MEDS ORDERED: BUTORPHANOL 2 MG/ML INJ (J0595) IV ONE (18:00)
[2019-03-03] MEDS ORDERED: PROMETHAZINE INJ 25 MG/ML VIAL (J2550) IV ONE (18:00)
[2019-03-03] MEDS ORDERED: METHYLERGONOVINE MALEATE 0.2 MG TAB PO PRN (20:30)
[2019-03-03] MEDS ORDERED: ACETAMINOPHEN 500 MG TAB PO PRN (20:30)
[2019-03-03] MEDS ORDERED: IBUPROFEN 600 MG TAB PO PRN (20:30)
[2019-03-03] MEDS ORDERED: DIBUCAINE 1% OINTMENT 30GM TOP PRN (20:30)
[2019-03-03] MEDS ORDERED: ACETAMINOPHEN TAB 650MG DOSE (2X325MG) PO PRN (20:30)
[2019-03-03] MEDS ORDERED: MEASLES,MUMPS,RUBELLA VACCINE INJ (MMR-II) (90707) SC SCH (20:30)
[2019-03-03] MEDS ORDERED: RHOGAM 300 MCG (1500 IU) INJ (J2790) IM SCH (20:30)
[2019-03-03] MEDS ORDERED: DOCUSATE SODIUM 100 MG CAP PO PRN (20:30)
[2019-03-04] MEDS: IBUPROFEN 800 MG TAB PO PRN ×2 (05:18→19:19)
[2019-03-04 06:25] VITALS: BP 103/68
--- NOTE | 2019-03-04 07:18 | IPNPDOC ---
Text Note Date of Service The patient was seen on 03/04/19. NOTE Day 1 s/p ; complicated by unknown rupture time S: pain well controlled, lochia and bleeding decreasing, voiding spontaneously, ambulating without assistance, tolerating regular diet.Formula feeding. O: vitals stable Heart: RRR, no murmurs/gallops/rubs Lungs: CTA BL Abd: Fundus U-2 and firm Ext: no-edema, nontender, Gunnar's negative bilaterally A/P: 24 yo G4 now P4. day 1 s/p . Hemodynamically stable, afebrile, good pain control. Recovering well. -Routine care and advancement. -Anticipate discharge tomorrow VS,Donaldo, I+O VS, Amrite, I+O Laboratory Tests 03/03/19 17:23 Red Blood Count 3.73 L, Mean Corpuscular Volume 85.8, Mean Corpuscular Hemoglobin 28.2, Mean Corpuscular Hemoglobin Concent 32.8, Red Cell Distribution Width 15.1 H Vital Signs Date Time Temp Pulse Resp B/P (MAP) Pulse Ox O2 Delivery O2 Flow Rate FiO2 03/04/19 06:25 98.2 72 18 103/68 (80) 03/03/19 22:48 99 I&O- Last 24 Hours up to 6 AM 03/04/19 06:00 Output Total 250 ml Balance -250 ml GME ATTESTATION GME ATTESTATION My faculty preceptor for this patient encounter was physically present during the encounter and was fully available. All aspects of the patient interview, examination, medical decision making process, and medical care plan development were reviewed and approved by the faculty preceptor. The faculty preceptor is aware and concurs with the plan as stated in the body of this note and will attest to such by his/her cosignature. CHITRA HAYNES DO Mar 04, 2019 07:18
[2019-03-04] MEDS ORDERED: PRENATAL VITAMINS CHEWABLE TABLET PO SCH (09:00)
--- NOTE | 2019-03-04 14:17 | HPE ---
DATE OF ADMISSION: 03/03/2019 The patient is a 24-year-old female who is a 4, para 3-0-0-3, at 38 weeks gestation with an expected date of delivery (TRICIA) of 03/17/2019 based off of her first trimester ultrasound. She initiated care in her first trimester of . Her has been uncomplicated. She presents today after being seen in the office today with spontaneous rupture of membranes. She reports active movement. She reports potential ruptured membranes yesterday during the day, but unknown time at this point. She reports she just had the feeling that she had to urinate multiple times. She denies vaginal bleeding and reports occasional contractions. PAST MEDICAL HISTORY: No current problems. SURGICAL HISTORY: None. FAMILY HISTORY: Heart disease, diabetes, hypertension, thyroid dysfunction, kidney disease, asthma. SOCIAL HISTORY: The patient is a half a pack smoker per day. She denies any history of alcohol abuse prior to or during or illicit drug use prior to or during . She does have a history of Chlamydia in the past that was treated. She is single and with the father of the baby. PAST PREGNANCIES: December 2010, at 37 weeks, she had an uncomplicated spontaneous vaginal delivery of a living female weighing 6 pounds 6 ounces with no complications. June 2013, at 37 weeks, she had a spontaneous vaginal delivery of a male weighing 6 pounds with no complications. July 2017, she had a vaginal delivery that was uncomplicated of a living female at 38 weeks weighing 6 pounds 13 ounces. LABS: The patient is O negative and had a positive antibody screen for which she received RhoGAM in the first trimester for bleeding. Her hemoglobin and hematocrit in her first trimester were 12.2 and 35.2 with platelets of 281. Rubella is immune. VDRL is nonreactive. She did have a urinary tract infection in her first trimester. Hepatitis B surface antigen is negative. HIV is negative. Hepatitis C is nonreactive. Gonorrhea and Chlamydia are both negative. Her NIPT testing was low risk and with a normal female. Her one hour glucose tolerance test was 121 with a hemoglobin and hematocrit of 9.8 and 28.8 with platelets of 192. Her GBS is negative. Urine cultures have continuously come back with E. Coli. PHYSICAL ASSESSMENT: General: Alert and oriented times three. Respiratory: Regular rate with no use of accessory muscles. Abdomen: Gravid. Nontender to touch. Cephalic presentation noted by vaginal exam and Andrea maneuver. Genitourinary: Sterile speculum exam (SSE), moderate amount of pooling noted in the vaginal canal with hair noted coming from the cervix. Sterile Vaginal Exam (SVE): 5 cm, 90% effaced and 0 station. Lower Extremities: No edema. No clonus. heart rate is 130, moderate variability, positive accelerations, no decelerations. Contractions are every 3-6 minutes. Vital Signs: Blood pressure 110/65, heart rate 93, respiratory rate 18, and temperature 98.2. ASSESSMENT: Intrauterine (IUP) at 38 weeks gestation, spontaneous rupture of membrane, active labor, negative GBS, category 1 heart rate tracing. PLAN: Admit patient to labor and delivery. Out of bed ad florencio. Clear liquid diet. IV and labs per unit protocol. Consider IV Pitocin to augment labor due to unknown timing of spontaneous ruptured membranes. The patient desires Stadol and Phenergan for pain management, which was ordered. Anticipate cervical change and spontaneous vaginal delivery.
[2019-03-04 17:49] VITALS: BP 106/65
--- NOTE | 2019-03-04 18:58 | DN ---
DELIVERY DATE AND TIME: 03/03/2019 at 1947 STATUS: Delivered. Spontaneous vaginal delivery. PROVIDER: Christiane Lambert CNM, REGINA ANESTHESIA: None. ESTIMATED BLOOD LOSS: 250 mL. FINDINGS: Female, 6 pounds 12 ounces, 3070 grams, scores 8/9. Potentially greater than 24 hours being spontaneously ruptured. Patient is a 24-year-old female who is now a 4, para 4-0-0-4 at 38 weeks gestation who presented to labor and delivery with spontaneous rupture of membranes of unknown time and active labor. The patient was augmented with intravenous (IV) Pitocin due to unknown time of spontaneous rupture of membranes. The patient received IV narcotics for pain management. She progressed to fully dilated at 194 and pushed to a living female in the occiput anterior (OA) position with restitution to right occiput transverse (ROT) at 194. The anterior shoulder delivered with ease, and the corpus immediately followed. The baby was placed on the maternal abdomen, active and crying with stimulation. The cord was clamped times two after pulsations ceased and cut by the father of the baby. A 3-vessel cord was noted. The placenta delivered spontaneously and intact at 195. Uterine hemostasis was achieved via rapid infusion of IV Pitocin and fundal massage. The vagina, cervix, and perineum were inspected and found to be intact. The mother and baby are both in stable condition. They plan on naming her Lillyanna. Both counts of instruments and sponges are correct.
[2019-03-05] MEDS: IBUPROFEN 800 MG TAB PO PRN (03:02)
[2019-03-05 06:00] VITALS: BP 120/72
== END 2019-03-05 10:47 | disposition home or self-care (01) | DRG 807 ==
LOC: M LDI 14:28 → M OBS 22:16
PROVIDERS: ADMIT Advanced Practice Midwife; ATTEND Advanced Practice Midwife
PROC: 10E0XZZ Delivery of Products of Conception, External Approach (ICD-10-PCS; principal; 2019-03-03)
DX: O99.334 Smoking (tobacco) complicating childbirth (principal); Z37.0 Single live birth; Z3A.38 38 weeks gestation of pregnancy; F17.210 Nicotine dependence, cigarettes, uncomplicated

== ENCOUNTER 2019-04-23 00:26 | Emergency (ER) | payer MEDICARE, MEDICAID ==
[~2019-04-23] VITALS: Ht 160 cm; Wt 46.8 kg
[~2019-04-23 00:26] MED LIST changes: -SERT-155; +SERT50TA29
[2019-04-23] MEDS ORDERED: METOCLOPRAMIDE INJ 10MG/2ML VIAL (J2765) IV ONE (00:45)
[2019-04-23] MEDS ORDERED: NS 1,000 ML IV ONE (00:45)
[2019-04-23 00:56] LABS: BASO % 0.5 % (0.0-1.0); EOS % 0.7 % (0.0-3.0); HEMATOCRIT 37.7 % (36.0-47.0); HEMOGLOBIN 12.5 g/dl (12.0-15.5); LYMPH # 2.7 10^3/uL (1.5-5.0); LYMPH % 45.9 % (24.0-44.0); MEAN CORPUSCULAR HEMOGLOBIN 27.6 pg (27.0-33.0); MEAN CORPUSCULAR HGB CONC 33.2 g/dl (32.0-36.5); MEAN CORPUSCULAR VOLUME 83.2 fl (80.0-96.0); MONO # 0.4 10^3/uL (0.0-0.8); MONO % 6.5 % (0.0-5.0); NEUTROPHILS # 2.7 10^3/uL (1.5-8.5); NEUTROPHILS % 46.2 % (36.0-66.0); PLATELET COUNT, AUTOMATED 267 10^3/uL (150-450); RED BLOOD COUNT 4.53 10^6/uL (4.00-5.40); WHITE BLOOD COUNT 5.8 10^3/uL (4.0-10.0)
[2019-04-23 01:18] LABS: BILIRUBIN,DIRECT 0.2 MG/DL (0.0-0.2); BILIRUBIN,TOTAL 0.7 MG/DL (0.2-1.0); TOTAL PROTEIN 7.2 GM/DL (6.4-8.2)
[2019-04-23] MEDS ORDERED: ONDANSETRON 4MG/2ML VIAL (J2405) IV ONE (01:45)
[2019-04-23] MEDS ORDERED: REGL10TA6 PO (02:27)
[2019-04-23] MEDS ORDERED: METOCLOPRAMIDE 10 MG TAB PO ONE (02:30)
[2019-04-23 02:35] VITALS: BP 104/65
--- NOTE | 2019-04-23 02:48 | REP ---
Clinical: Abdominal pain with vomiting and diarrhea. Technique: Supine and cross-table lateral view of the abdomen and pelvis. Findings: Bowel gas pattern is nonspecific. No obstruction or perforation. No organomegaly. No abnormal calcifications. Skeletal structures are intact. Impression: Nonspecific bowel gas pattern. Electronically Signed by Hermes Atkins MD 04/23/2019 02:39 A
[2019-05-07] MEDS ORDERED: HYDR-643 PO (09:41)
[2019-05-07] MEDS ORDERED: ZOLO50TA PO (09:41)
== END 2019-04-23 02:41 | disposition home or self-care (01) ==
LOC: M ED 00:26
DX: R11.2 Nausea with vomiting, unspecified (principal); R19.7 Diarrhea, unspecified; J45.909 Unspecified asthma, uncomplicated; F17.200 Nicotine dependence, unspecified, uncomplicated
CPT/HCPCS: 74021; 80047; 80076; 83690; 85025; 96374; 99284; J2405; J2765

== ENCOUNTER 2019-05-21 09:38 | Day surgery (SDC) | payer MEDICARE, MEDICAID ==
[~2019-05-21] VITALS: Ht 160 cm; Wt 44.9 kg
[~2019-05-21 09:38] MED LIST changes: +HYDR-643 PO; +LIDOCAINE 2% INJ 100 MG/5 ML SDV (FOR ANES.) As Ordered ONE; +LR 1,000 ML IV ONE; +MIDAZOLAM INJ 2 MG/2 ML VIAL (J2250) As Ordered ONE; +ONDANSETRON 4MG/2ML VIAL (J2405) As Ordered ONE; +PROPOFOL 200 MG/20 ML VIAL As Ordered ONE; +ROCURONIUM BROMIDE 50 MG/5 ML VIAL As Ordered ONE; +ZOLO50TA PO; +dexameTHASONE 4 MG/ML 1ML VIAL (J1100) As Ordered ONE; +fentaNYL 100 MCG/2 ML INJECTION (J3010) As Ordered ONE
[2019-05-21] MEDS ORDERED: SUGAMMADEX SODIUM 500 MG/5 ML VIAL (BRIDION) As Ordered ONE (09:42)
[2019-05-21] MEDS ORDERED: KETOROLAC 60 MG/2 ML VIAL (J1885) As Ordered ONE (09:42)
[2019-05-21 10:06] LABS: HEMATOCRIT 39.1 % (36.0-47.0); HEMOGLOBIN 12.8 g/dl (12.0-15.5); MEAN CORPUSCULAR HEMOGLOBIN 27.9 pg (27.0-33.0); MEAN CORPUSCULAR HGB CONC 32.7 g/dl (32.0-36.5); MEAN CORPUSCULAR VOLUME 85.2 fl (80.0-96.0); PLATELET COUNT, AUTOMATED 284 10^3/uL (150-450); RED BLOOD COUNT 4.59 10^6/uL (4.00-5.40); WHITE BLOOD COUNT 6.6 10^3/uL (4.0-10.0)
[2019-05-21] MEDS ORDERED: OXYC1TAB23 PO (10:52)
[2019-05-21] MEDS ORDERED: BUPIVACAINE HCL 0.25% 30 ML VIAL As Ordered ONE (12:43)
[2019-05-21] MEDS ORDERED: ePHEDrine SULFATE 25 MG/5 ML(5MG/ML) SYRINGE As Ordered ONE (13:53)
[2019-05-21] MEDS ORDERED: GLYCOPYRROLATE INJ 0.2 MG/ML 2 ML VIAL As Ordered ONE (13:53)
[2019-05-21] MEDS ORDERED: LR 1,000 ML IV SCH (14:45)
[2019-05-21] MEDS ORDERED: fentaNYL 100 MCG/2 ML INJECTION (J3010) IV PRN (14:45)
[2019-05-21] MEDS ORDERED: ONDANSETRON 4MG/2ML VIAL (J2405) IV PRN (14:45)
[2019-05-21] MEDS ORDERED: PERCOCET 5MG/325MG TAB PO PRN ×2 (14:45)
--- NOTE | 2019-05-21 15:04 | RO ---
DATE OF PROCEDURE: 05/21/2019 PREOPERATIVE DIAGNOSIS: Satisfied parity with undesired fertility. POSTPROCEDURE DIAGNOSIS: Satisfied parity and undesired fertility. PROCEDURE PERFORMED: Diagnostic operative laparoscopy with bilateral salpingectomy for purpose of sterilization. SURGEON: Dawna Phillip MD ACTIVITIES ASSISTANT: None. ANESTHESIA: General. ESTIMATED BLOOD LOSS: 5 mL IV FLUIDS: 1200 mL. URINE OUTPUT: 300 mL. PREOPERATIVE ANTIBIOTIC: None. SPECIMENS: Bilateral fallopian tubes. OPERATIVE FINDINGS: Patient with normal-appearing uterus, bilateral adnexa and the appendix was visualized and appeared to be normal. DESCRIPTION OF OPERATION: After informed consent was obtained and written consent was reviewed, the patient brought to operating room where she was placed under general endotracheal anesthesia. She was then placed in lithotomy position. She was prepped and draped in normal sterile fashion. A time out in the operating room was then performed identifying the patient, procedure be performed, as well as drug allergies. [place] speculum was placed revealing cervix. The anterior lip of the cervix was grasped with a single-tooth tenaculum. [place] tenaculum was then advanced through cervical os for means to manipulate the uterus. The single-tooth tenaculum, as well as Oswald catheter was removed. Oswald catheter was then placed and set to gravity. Gloves were changed. Attention was turned to the patient's abdomen, where 0.25% Marcaine was infused in umbilical region. This area was incised and a 5 mm trocar sleeve was advanced through this incision. The laparoscope was then replaced revealing intra-abdominal placement. Pneumoperitoneum was then obtained with CO2 gas. The abdomen was then surveyed with the above-noted findings. Two additional port sites were placed. A port site was placed 2 cm above the pubis symphysis in the midline. This area was infused with 0.25% Marcaine. Incision was made in this area. An 8 mm trocar sleeve was advanced through this incision under direct visualization. A second accessory port site was placed on the left side of the patient's abdomen. This area was infused 0.25% Marcaine and a 5 mm trocar sleeve was advanced through this incision under direct visualization. Next, the right fallopian tube was placed on traction. Using Harmonic Idris scalpel device, the mesosalpinx was dissected underneath the fallopian tube and was transected at level of the uterus. Specimen was then brought out through the port site. In a similar fashion, the left fallopian tube was dissected along these mesosalpinx underneath the fallopian tube and was transected at the level of the uterus and the specimen was removed. Surgical sites were inspected and noted be hemostatic. Pneumoperitoneum was then released. The port sites were closed with 4-0 Monocryl and was dressed Dermabond. Oswald catheter and single-tooth tenaculum was then removed. The patient was then taken out lithotomy position, was awakened from anesthesia, and taken to the recovery room in stable condition. All counts were correct. MTDD
[2019-05-21] MEDS ORDERED: KETOROLAC 30 MG/ML VIAL (J1885) IV SCH (16:00)
[2019-05-21 16:15] VITALS: BP 103/56
== END 2019-05-21 16:30 | disposition home or self-care (01) ==
LOC: M SDC 09:38
PROVIDERS: ATTEND Obstetrics & Gynecology
DX: Z30.2 Encounter for sterilization (principal); R09.81 Nasal congestion; F41.9 Anxiety disorder, unspecified; F32.9 Major depressive disorder, single episode, unspecified; J45.909 Unspecified asthma, uncomplicated; F17.210 Nicotine dependence, cigarettes, uncomplicated; Z79.899 Other long term (current) drug therapy
CPT/HCPCS: 36415; 58661; 81025; 85027; 86850; 86870; 86900; 86901; 88302; J1100; J1885; J2250; J2405; J3010

== ENCOUNTER 2019-07-31 08:17 | Emergency (ER) | payer MEDICARE, MEDICAID ==
[~2019-07-31] VITALS: Ht 160 cm; Wt 42.3 kg
[~2019-07-31 08:17] MED LIST changes: -LIDOCAINE 2% INJ 100 MG/5 ML SDV (FOR ANES.) As Ordered ONE; -LR 1,000 ML IV ONE; -MIDAZOLAM INJ 2 MG/2 ML VIAL (J2250) As Ordered ONE; -ONDANSETRON 4MG/2ML VIAL (J2405) As Ordered ONE; +OXYC1TAB23 PO; -PROPOFOL 200 MG/20 ML VIAL As Ordered ONE; -ROCURONIUM BROMIDE 50 MG/5 ML VIAL As Ordered ONE; -dexameTHASONE 4 MG/ML 1ML VIAL (J1100) As Ordered ONE; -fentaNYL 100 MCG/2 ML INJECTION (J3010) As Ordered ONE
[2019-07-31] MEDS ORDERED: ACETAMINOPHEN TAB 650MG DOSE (2X325MG) PO ONE (09:00)
[2019-07-31 09:18] LABS: INFLUENZA A AMPLIFICATION POSITIVE (NEGATIVE); INFLUENZA B AMPLIFICATION NEGATIVE (NEGATIVE)
[2019-07-31] MEDS ORDERED: BENZ200C70 PO (09:34)
[2019-07-31] MEDS ORDERED: MUCI600T31 PO (09:34)
[2019-07-31 09:50] VITALS: BP 96/51
== END 2019-07-31 09:53 | disposition home or self-care (01) ==
LOC: M ED 08:17
DX: J09.X2 Influenza due to identified novel influenza A virus with other respiratory manifestations (principal); F41.9 Anxiety disorder, unspecified; F17.200 Nicotine dependence, unspecified, uncomplicated; Z79.899 Other long term (current) drug therapy

== ENCOUNTER 2019-08-12 10:23 | Emergency (ER) | payer MEDICARE, MEDICAID ==
[~2019-08-12] VITALS: Ht 160 cm; Wt 42.1 kg
[~2019-08-12 10:23] MED LIST changes: +BENZ200C70 PO; +MUCI600T31 PO
[2019-08-12] MEDS ORDERED: ADVIL (10:30)
[2019-08-12] MEDS ORDERED: cefTRIAXone SOD 1 GM in D5W MINI-BAG PLUS 50 ML IV ONE (12:00)
[2019-08-12] MEDS ORDERED: ACETAMINOPHEN 325 MG TAB PO ONE (12:00)
[2019-08-12] MEDS ORDERED: NS 1,000 ML IV ONE (12:00)
[2019-08-12 12:09] LABS: INFLUENZA A AMPLIFICATION NEGATIVE (NEGATIVE); INFLUENZA B AMPLIFICATION NEGATIVE (NEGATIVE)
[2019-08-12 12:43] LABS: BASO % 0.2 % (0.0-1.0); HEMATOCRIT 39.3 % (36.0-47.0); LYMPH % 7.7 % (24.0-44.0); MEAN CORPUSCULAR HEMOGLOBIN 29.5 pg (27.0-33.0); MEAN CORPUSCULAR HGB CONC 33.1 g/dl (32.0-36.5); MEAN CORPUSCULAR VOLUME 89.3 fl (80.0-96.0); MONO # 1.2 10^3/uL (0.0-0.8); MONO % 9.4 % (0.0-5.0); NEUTROPHILS # 10.8 10^3/uL (1.5-8.5); NEUTROPHILS % 82.2 % (36.0-66.0); PLATELET COUNT, AUTOMATED 274 10^3/uL (150-450); WHITE BLOOD COUNT 13.2 10^3/uL (4.0-10.0)
[2019-08-12 13:11] LABS: ALBUMIN 3.9 GM/DL (3.2-5.2); ALT/SGPT 22 U/L (12-78); BILIRUBIN,DIRECT 0.3 MG/DL (0.0-0.2); BILIRUBIN,TOTAL 1.6 MG/DL (0.2-1.0); BLOOD UREA NITROGEN 9 MG/DL (7-18); CALCIUM LEVEL 9.1 MG/DL (8.5-10.1); CARBON DIOXIDE LEVEL 24 MEQ/L (21-32); CHLORIDE LEVEL 105 MEQ/L (98-107); CREATININE FOR GFR 0.99 MG/DL (0.55-1.30); GLOMERULAR FILTRATION RATE > 60.0 (>60); GLUCOSE, FASTING 90 MG/DL (70-100); POTASSIUM SERUM 4.1 MEQ/L (3.5-5.1); SODIUM LEVEL 138 MEQ/L (136-145); TOTAL PROTEIN 7.7 GM/DL (6.4-8.2)
[2019-08-12 13:20] LABS: HCG, SERUM QUALITATIVE NEGATIVE (NEGATIVE)
--- NOTE | 2019-08-12 13:54 | REP ---
Urinary tract sonogram: History: Right flank pain. Systemic inflammatory response syndrome. Dysuria. Comparison CT study July 04, 2016. Findings: Scanning at the level of the urinary bladder shows no abnormality. Renal cortical echogenicity pattern is normal bilaterally and contours are smooth. There is no evidence of hydronephrosis, cyst, mass, or calculus in either kidney. The right kidney measures 10.6 x 4.6 x 3.5 cm. There is a hyperechoic nodule in the right kidney measuring 1.4 x 1.3 x 1.6 cm in the region of the upper pole laterally. No corresponding abnormality is seen on the old CT study. This may be an area of inflammation, pyelonephritis. Left renal dimensions are 10.8 x 4.5 x 4.9 cm. Impression: 1.6 cm hyperechoic area in the renal parenchyma of the right upper pole question focal pyelonephritis. Otherwise negative urinary tract sonography. Electronically Signed by Otto Gaston MD 08/12/2019 01:45 P
[2019-08-12] MEDS ORDERED: CIPR-249 PO (14:18)
[2019-08-12 14:27] VITALS: BP 90/54
== END 2019-08-12 14:39 | disposition home or self-care (01) ==
LOC: M ED 10:23
DX: N10 Acute pyelonephritis (principal); R65.10 Systemic inflammatory response syndrome (SIRS) of non-infectious origin without acute organ dysfunction; F41.9 Anxiety disorder, unspecified; F32.9 Major depressive disorder, single episode, unspecified; Z79.899 Other long term (current) drug therapy
CPT/HCPCS: 76775; 80048; 80076; 81001; 83605; 84703; 85025; 87040; 87077; 87088; 87186; 87502; 96365; 96366; 99284; J0696

== ENCOUNTER → 2020-08-21 | Outpatient (REF) | payer MEDICARE, MEDICAID ==
[~2020-08-21] MED LIST changes: +ADVIL; +CIPR-249 PO
[2020-08-21 18:32] LABS: URINE PREG TEST NEGATIVE (NEGATIVE)
[2020-08-21 18:40] LABS: APPEARANCE, URINE HAZY (CLEAR); BACTERIA, URINE AUTO NEGATIVE (NEGATIVE); BILIRUBIN, URINE AUTO NEGATIVE (NEGATIVE); BLOOD, URINE BLOOD 1+ (NEGATIVE); COLOR, URINE YELLOW (YELLOW); GLUCOSE, URINE (UA) AUTO NEGATIVE (NEGATIVE); KETONE, URINE AUTO NEGATIVE (NEGATIVE); LEUKOCYTE ESTERASE, URINE AUTO NEGATIVE (NEGATIVE); MUCUS, URINE SMALL (NEGATIVE); NITRITE, URINE AUTO NEGATIVE (NEGATIVE); PROTEIN, URINE AUTO NEGATIVE (NEGATIVE); RBC, URINE AUTO 1 /HPF (0-3); SPECIFIC GRAVITY URINE AUTO 1.023 (1.002-1.035); SQUAMOUS EPITHELIAL CELL UR AU 3 /HPF (0-6); UROBILINOGEN, URINE AUTO 0.2 mg/dL (0.0-2.0); WBC, URINE AUTO 1 /HPF (0-3)
[2020-08-21 22:03] LABS: CHLAMYDIA DNA AMPLIFICATION NEGATIVE (NEGATIVE); GC DNA AMPLIFICATION NEGATIVE (NEGATIVE)
== END ==
LOC: M LAB REF 16:40
PROVIDERS: ATTEND Physician Assistant
DX: R10.9 Unspecified abdominal pain (principal); Z11.3 Encounter for screening for infections with a predominantly sexual mode of transmission

== ENCOUNTER 2020-09-08 09:48 | Emergency (ER) | payer MEDICARE, MEDICAID ==
[~2020-09-08] VITALS: Ht 160 cm; Wt 43.5 kg
[2020-09-08 10:58] LABS: BASO % 0.4 % (0.0-1.0); EOS % 0.3 % (0.0-3.0); HEMATOCRIT 35.7 % (36.0-47.0); LYMPH # 0.9 10^3/uL (1.5-5.0); LYMPH % 13.1 % (24.0-44.0); MEAN CORPUSCULAR HEMOGLOBIN 30.2 pg (27.0-33.0); MEAN CORPUSCULAR HGB CONC 33.6 g/dl (32.0-36.5); MEAN CORPUSCULAR VOLUME 89.9 fl (80.0-96.0); MONO # 0.2 10^3/uL (0.0-0.8); MONO % 3.3 % (2.0-8.0); NEUTROPHILS # 5.8 10^3/uL (1.5-8.5); NEUTROPHILS % 82.3 % (36.0-66.0); PLATELET COUNT, AUTOMATED 246 10^3/uL (150-450); RED BLOOD COUNT 3.97 10^6/uL (4.00-5.40)
[2020-09-08 11:22] LABS: ALBUMIN 3.9 GM/DL (3.2-5.2); ALT/SGPT 15 U/L (12-78); BILIRUBIN,TOTAL 0.9 MG/DL (0.2-1.0); BLOOD UREA NITROGEN 9 MG/DL (7-18); CALCIUM LEVEL 8.8 MG/DL (8.5-10.1); CARBON DIOXIDE LEVEL 25 MEQ/L (21-32); CHLORIDE LEVEL 112 MEQ/L (98-107); CREATININE FOR GFR 0.81 MG/DL (0.55-1.30); GLOMERULAR FILTRATION RATE > 60.0 (>60); GLUCOSE, FASTING 105 MG/DL (70-100); LIPASE 44 U/L (73-393); POTASSIUM SERUM 3.5 MEQ/L (3.5-5.1); SODIUM LEVEL 141 MEQ/L (136-145); TOTAL PROTEIN 7.2 GM/DL (6.4-8.2)
[2020-09-08] MEDS ORDERED: NS 1,000 ML IV ONE (12:20)
[2020-09-08] MEDS ORDERED: PROMETHAZINE INJ 25 MG/ML VIAL (J2550) IV ONE (12:50)
--- NOTE | 2020-09-08 12:55 | REP ---
INDICATION: abd pain COMPARISON: None. TECHNIQUE: Supine view of the abdomen and pelvis. FINDINGS: Bowel gas pattern is nonspecific and without obstruction or perforation. No organomegaly. No significant abnormal calcifications. Skeletal structures intact. IMPRESSION: Normal nonspecific abdominal radiograph. <Electronically signed by Hermes Atkins > 09/08/20 [id number]
[2020-09-08 14:04] VITALS: BP 105/64
[2020-09-08] MEDS ORDERED: SULF1TAB23 PO (15:44)
[2020-09-08 16:14] LABS: AMPHETAMINES LEVEL URINE NEGATIVE (NEGATIVE); BARBITURATES URINE NEGATIVE (NEGATIVE); BENZODIAZEPINES URINE NEGATIVE (NEGATIVE); CANNABINOIDS URINE POSITIVE (NEGATIVE); COCAINE METABOLITE URINE NEGATIVE (NEGATIVE); METHADONE URINE NEGATIVE (NEGATIVE); OPIATES URINE NEGATIVE (NEGATIVE); PHENCYCLIDINE URINE NEGATIVE (NEGATIVE)
== END 2020-09-08 16:07 | disposition home or self-care (01) ==
LOC: M ED 09:48
DX: N39.0 Urinary tract infection, site not specified (principal); J45.909 Unspecified asthma, uncomplicated; F41.9 Anxiety disorder, unspecified; Z87.448 Personal history of other diseases of urinary system; F17.200 Nicotine dependence, unspecified, uncomplicated; F12.10 Cannabis abuse, uncomplicated; Z79.899 Other long term (current) drug therapy

== ENCOUNTER → 2020-10-27 | Outpatient (CLI) | payer MEDICARE, MEDICAID ==
[~2020-10-27] MED LIST changes: +SULF1TAB23 PO
--- NOTE | 2020-10-28 07:54 | REP ---
INDICATION: LOW BACK PAIN COMPARISON: None. TECHNIQUE: Three AP and lateral views of the sacrum and coccyx. FINDINGS: The sacrum and coccyx including the bilateral sacroiliac joints appear symmetric and normal. IMPRESSION: Normal age-appropriate examination. <Electronically signed by Hermes Atkins > 10/28/20 [id number]
== END ==
LOC: M RAD 17:04
PROVIDERS: ATTEND Nurse Practitioner Family
DX: M54.5 Low back pain (principal)

== ENCOUNTER 2020-12-15 13:16 | Emergency (ER) | payer MEDICARE, MEDICAID ==
[~2020-12-15] VITALS: Ht 160 cm; Wt 44.5 kg
[~2020-12-15 13:16] MED LIST changes: -CEPH250REC PO; -CEPH500C PO; -ONDA4TAB6 PO
[2020-12-15] MEDS ORDERED: KETOROLAC 30 MG/ML 1ML VIAL IV ONE (14:20)
[2020-12-15] MEDS ORDERED: NS 1,000 ML IV ONE (14:20)
[2020-12-15] MEDS ORDERED: ONDANSETRON 4MG/2ML VIAL IV ONE (14:20)
[2020-12-15] MEDS ORDERED: ACETAMINOPHEN 500 MG TAB PO ONE (14:20)
[2020-12-15 15:28] LABS: BASO # 0.1 10^3/uL (0.0-0.2); BASO % 0.2 % (0.0-1.0); HEMATOCRIT 38.3 % (36.0-47.0); HEMOGLOBIN 13.3 g/dl (12.0-15.5); LYMPH # 0.5 10^3/uL (1.5-5.0); LYMPH % 2.3 % (24.0-44.0); MEAN CORPUSCULAR HEMOGLOBIN 30.8 pg (27.0-33.0); MEAN CORPUSCULAR HGB CONC 34.7 g/dl (32.0-36.5); MEAN CORPUSCULAR VOLUME 88.7 fl (80.0-96.0); MONO # 1.3 10^3/uL (0.0-0.8); MONO % 5.9 % (2.0-8.0); NEUTROPHILS # 19.2 10^3/uL (1.5-8.5); NEUTROPHILS % 90.3 % (36.0-66.0); PLATELET COUNT, AUTOMATED 256 10^3/uL (150-450); RED BLOOD COUNT 4.32 10^6/uL (4.00-5.40); WHITE BLOOD COUNT 21.3 10^3/uL (4.0-10.0)
[2020-12-15 15:52] LABS: ALBUMIN 4.2 GM/DL (3.2-5.2); BILIRUBIN,DIRECT 0.4 MG/DL (0.0-0.2); BILIRUBIN,TOTAL 2.9 MG/DL (0.2-1.0); TOTAL PROTEIN 7.6 GM/DL (6.4-8.2)
[2020-12-15] MEDS ORDERED: cefTRIAXone SOD 1 GM in D5W MINI-BAG PLUS 50 ML IV ONE (16:05)
[2020-12-15] MEDS ORDERED: CEPH500C PO (16:08)
[2020-12-15] MEDS ORDERED: ONDA4TAB6 PO (16:08)
[2020-12-15 17:38] VITALS: BP 98/53
== END 2020-12-15 17:40 | disposition home or self-care (01) ==
LOC: EDBD 13:16 → M ED 13:16
DX: N10 Acute pyelonephritis (principal); R10.9 Unspecified abdominal pain; N63.20 Unspecified lump in the left breast, unspecified quadrant; F17.200 Nicotine dependence, unspecified, uncomplicated
CPT/HCPCS: 80047; 80076; 81001; 83605; 83690; 84702; 85025; 87040; 87088; 87186; 96365; 96375; 99284; J0696; J1885; J2405

== ENCOUNTER → 2020-12-15 | Outpatient (REF) | payer MEDICARE, MEDICAID ==
[~2020-12-15] MED LIST changes: +CEPH250REC PO; +CEPH500C PO; +ONDA4TAB6 PO
== END ==
LOC: M WUC 15:39
PROVIDERS: ATTEND Nurse Practitioner Family
DX: N39.0 Urinary tract infection, site not specified (principal)

== ENCOUNTER 2020-12-17 18:15 | Emergency (ER) | payer MEDICARE, MEDICAID ==
[~2020-12-17] VITALS: Ht 160 cm; Wt 42.9 kg
[~2020-12-17 18:15] MED LIST changes: +CEPH500C PO; +ONDA4TAB6 PO
[2020-12-17 19:22] LABS: BASO # 0.1 10^3/uL (0.0-0.2); BASO % 0.8 % (0.0-1.0); EOS % 0.6 % (0.0-3.0); HEMATOCRIT 33.7 % (36.0-47.0); HEMOGLOBIN 11.6 g/dl (12.0-15.5); LYMPH # 1.2 10^3/uL (1.5-5.0); LYMPH % 17.8 % (24.0-44.0); MEAN CORPUSCULAR HEMOGLOBIN 30.4 pg (27.0-33.0); MEAN CORPUSCULAR HGB CONC 34.4 g/dl (32.0-36.5); MEAN CORPUSCULAR VOLUME 88.2 fl (80.0-96.0); MONO # 0.8 10^3/uL (0.0-0.8); MONO % 12.7 % (2.0-8.0); NEUTROPHILS # 4.4 10^3/uL (1.5-8.5); NEUTROPHILS % 67.6 % (36.0-66.0); PLATELET COUNT, AUTOMATED 230 10^3/uL (150-450); RED BLOOD COUNT 3.82 10^6/uL (4.00-5.40); WHITE BLOOD COUNT 6.6 10^3/uL (4.0-10.0)
[2020-12-17] MEDS ORDERED: CEPHALEXIN SUSP POWDER 250MG/5ML BTL 100ML PO ONE (19:25)
[2020-12-17 19:42] LABS: BLOOD UREA NITROGEN 11 MG/DL (7-18); CALCIUM LEVEL 8.7 MG/DL (8.5-10.1); CARBON DIOXIDE LEVEL 25 MEQ/L (21-32); CHLORIDE LEVEL 104 MEQ/L (98-107); CREATININE FOR GFR 0.74 MG/DL (0.55-1.30); GLOMERULAR FILTRATION RATE > 60.0 (>60); GLUCOSE, FASTING 87 MG/DL (70-100); POTASSIUM SERUM 3.7 MEQ/L (3.5-5.1); SODIUM LEVEL 137 MEQ/L (136-145)
[2020-12-17] MEDS ORDERED: CEPH250REC PO (20:00)
[2020-12-17 20:15] VITALS: BP 103/52
== END 2020-12-17 20:20 | disposition home or self-care (01) ==
LOC: M ED 18:15
DX: N10 Acute pyelonephritis (principal); J45.909 Unspecified asthma, uncomplicated; F17.200 Nicotine dependence, unspecified, uncomplicated

== ENCOUNTER 2021-10-05 11:01 | Emergency (ER) | payer MEDICARE, MEDICAID ==
[~2021-10-05] VITALS: Ht 160 cm; Wt 43.1 kg
[~2021-10-05 11:01] MED LIST changes: +CEPH250REC PO
[2021-10-05] MEDS ORDERED: ONDANSETRON 4MG ORAL DISINTEGRATING TAB PO ONE (13:10)
[2021-10-05 13:27] LABS: BASO # 0.1 10^3/uL (0.0-0.2); BASO % 0.4 % (0.0-1.0); EOS % 0.2 % (0.0-3.0); HEMATOCRIT 38.9 % (36.0-47.0); HEMOGLOBIN 13.7 g/dl (12.0-15.5); LYMPH # 2.7 10^3/uL (1.5-5.0); LYMPH % 20.2 % (24.0-44.0); MEAN CORPUSCULAR HEMOGLOBIN 31.2 pg (27.0-33.0); MEAN CORPUSCULAR HGB CONC 35.2 g/dl (32.0-36.5); MEAN CORPUSCULAR VOLUME 88.6 fl (80.0-96.0); MONO # 0.5 10^3/uL (0.0-0.8); MONO % 3.8 % (2.0-8.0); NEUTROPHILS # 9.9 10^3/uL (1.5-8.5); PLATELET COUNT, AUTOMATED 327 10^3/uL (150-450); RED BLOOD COUNT 4.39 10^6/uL (4.00-5.40); WHITE BLOOD COUNT 13.2 10^3/uL (4.0-10.0)
[2021-10-05 13:33] LABS: APPEARANCE, URINE CLEAR (CLEAR); BACTERIA, URINE AUTO 1+ (NEGATIVE); BILIRUBIN, URINE AUTO NEGATIVE (NEGATIVE); BLOOD, URINE BLOOD 2+ (NEGATIVE); COLOR, URINE YELLOW (YELLOW); GLUCOSE, URINE (UA) AUTO NEGATIVE (NEGATIVE); KETONE, URINE AUTO NEGATIVE (NEGATIVE); LEUKOCYTE ESTERASE, URINE AUTO NEGATIVE (NEGATIVE); MUCUS, URINE SMALL (NEGATIVE); NITRITE, URINE AUTO NEGATIVE (NEGATIVE); PROTEIN, URINE AUTO NEGATIVE (NEGATIVE); RBC, URINE AUTO 3 /HPF (0-3); SPECIFIC GRAVITY URINE AUTO 1.019 (1.002-1.035); SQUAMOUS EPITHELIAL CELL UR AU 1 /HPF (0-6); TRANSITIONAL EPITHELIAL AUTO <1 /HPF; UROBILINOGEN, URINE AUTO 0.2 mg/dL (0.0-2.0); WBC, URINE AUTO 0 /HPF (0-3)
[2021-10-05 13:49] LABS: ALBUMIN 4.1 GM/DL (3.2-5.2); ALT/SGPT 20 U/L (12-78); BILIRUBIN,DIRECT 0.1 MG/DL (0.0-0.2); BILIRUBIN,TOTAL 0.5 MG/DL (0.2-1.0); BLOOD UREA NITROGEN 14 MG/DL (7-18); CALCIUM LEVEL 9.3 MG/DL (8.5-10.1); CARBON DIOXIDE LEVEL 29 MEQ/L (21-32); CHLORIDE LEVEL 108 MEQ/L (98-107); CREATININE FOR GFR 0.75 MG/DL (0.55-1.30); GLOMERULAR FILTRATION RATE > 60.0 (>60); GLUCOSE, FASTING 89 MG/DL (70-100); LIPASE 74 U/L (73-393); POTASSIUM SERUM 3.9 MEQ/L (3.5-5.1); SODIUM LEVEL 138 MEQ/L (136-145); TOTAL PROTEIN 7.7 GM/DL (6.4-8.2)
[2021-10-05] MEDS ORDERED: ONDA4TAB6 PO (14:17)
[2021-10-05] MEDS ORDERED: CEFD250S26 PO (14:17)
[2021-10-05 15:00] VITALS: BP 91/55
== END 2021-10-05 15:20 | disposition home or self-care (01) ==
LOC: M ED 11:01
DX: N39.0 Urinary tract infection, site not specified (principal); Z87.448 Personal history of other diseases of urinary system; F32.9 Major depressive disorder, single episode, unspecified; F17.200 Nicotine dependence, unspecified, uncomplicated; Z79.899 Other long term (current) drug therapy

== ENCOUNTER 2022-08-08 17:10 | Emergency (ER) | payer MEDICARE, MEDICAID ==
[~2022-08-08] VITALS: Ht 160 cm; Wt 45.1 kg
[~2022-08-08 17:10] MED LIST changes: +CEFD250S26 PO
[2022-08-08 18:39] LABS: BASO # 0.1 10^3/uL (0.0-0.2); BASO % 0.5 % (0.0-1.0); EOS # 0.1 10^3/uL (0.0-0.5); EOS % 0.6 % (0.0-3.0); HEMATOCRIT 37.4 % (36.0-47.0); HEMOGLOBIN 13.2 g/dl (12.0-15.5); LYMPH # 1.7 10^3/uL (1.5-5.0); LYMPH % 16.4 % (24.0-44.0); MEAN CORPUSCULAR HGB CONC 35.3 g/dl (32.0-36.5); MEAN CORPUSCULAR VOLUME 87.8 fl (80.0-96.0); MONO # 0.7 10^3/uL (0.0-0.8); MONO % 6.8 % (2.0-8.0); NEUTROPHILS # 7.7 10^3/uL (1.5-8.5); NEUTROPHILS % 75.3 % (36.0-66.0); PLATELET COUNT, AUTOMATED 272 10^3/uL (150-450); RED BLOOD COUNT 4.26 10^6/uL (4.00-5.40); WHITE BLOOD COUNT 10.2 10^3/uL (4.0-10.0)
[2022-08-08 19:13] LABS: ALBUMIN 4.1 G/DL (3.2-5.2); BILIRUBIN,DIRECT 0.3 MG/DL (<0.4); BILIRUBIN,TOTAL 1.1 MG/DL (0.3-1.2); TOTAL PROTEIN 7.4 G/DL (5.7-8.2)
[2022-08-08] MEDS ORDERED: NS 1,000 ML IV ONE (19:15)
[2022-08-08] MEDS ORDERED: KETOROLAC 30 MG/ML 1ML VIAL IV ONE (19:15)
[2022-08-08] MEDS ORDERED: cefTRIAXone SOD 1 GM in D5W MINI-BAG PLUS 50 ML IV ONE (19:15)
[2022-08-08] MEDS ORDERED: KETO10TAB PO (20:48)
[2022-08-08] MEDS ORDERED: CEFD300C41 PO (20:48)
[2022-08-08 21:05] VITALS: BP 112/70
[2022-08-08 22:49] LABS: GC DNA AMPLIFICATION NEGATIVE (NEGATIVE)
== END 2022-08-08 21:32 | disposition home or self-care (01) ==
LOC: M ED 17:10
DX: N39.0 Urinary tract infection, site not specified (principal); R10.2 Pelvic and perineal pain; F17.200 Nicotine dependence, unspecified, uncomplicated
CPT/HCPCS: 36415; 76775; 76830; 76856; 80047; 80076; 81000; 81015; 83690; 85025; 87088; 87186; 87661; 87810; 87850; 93976; 96374; 96375; 99284; J0696

== ENCOUNTER → 2023-05-02 | Outpatient (CLI) | payer MEDICARE, MEDICAID ==
[~2023-05-02] MED LIST changes: +CEFD300C42 PO; +KETO10TAB PO
== END ==
LOC: M WUC 12:27
PROVIDERS: ATTEND Physician Assistant
DX: R07.81 Pleurodynia (principal); M54.6 Pain in thoracic spine; N39.0 Urinary tract infection, site not specified

== ENCOUNTER → 2023-05-02 | Outpatient (REF) | payer MEDICARE, MEDICAID ==
[2023-05-02 14:16] LABS: APPEARANCE, URINE CLOUDY (CLEAR); BACTERIA, URINE AUTO 2+ (NEGATIVE); BILIRUBIN, URINE AUTO NEGATIVE (NEGATIVE); BLOOD, URINE BLOOD NEGATIVE (NEGATIVE); COLOR, URINE YELLOW (YELLOW); GLUCOSE, URINE (UA) AUTO NEGATIVE (NEGATIVE); KETONE, URINE AUTO NEGATIVE (NEGATIVE); LEUKOCYTE ESTERASE, URINE AUTO 2+ (NEGATIVE); NITRITE, URINE AUTO POSITIVE (NEGATIVE); PROTEIN, URINE AUTO NEGATIVE (NEGATIVE); RBC, URINE AUTO 0 /HPF (0-3); SPECIFIC GRAVITY URINE AUTO 1.016 (1.002-1.035); SQUAMOUS EPITHELIAL CELL UR AU 0 /HPF (0-6); UROBILINOGEN, URINE AUTO 0.2 mg/dL (0.0-2.0); WBC, URINE AUTO 0 /HPF (0-3)
== END ==
LOC: M LAB REF 12:47
PROVIDERS: ATTEND Physician Assistant
DX: N39.0 Urinary tract infection, site not specified (principal)

== ENCOUNTER 2023-06-27 14:06 | Emergency (ER) | payer MEDICARE, MEDICAID ==
[~2023-06-27] VITALS: Ht 165.1 cm; Wt 45.5 kg
[~2023-06-27 14:06] MED LIST changes: +CEFD1CAP9 PO; -CEFD300C42 PO
[2023-06-27] MEDS ORDERED: METOCLOPRAMIDE INJ 10MG/2ML VIAL IV ONE (15:25)
[2023-06-27 15:26] LABS: BASO % 0.2 % (0.0-1.0); HEMATOCRIT 38.5 % (36.0-47.0); HEMOGLOBIN 13.5 g/dl (12.0-15.5); LYMPH # 0.7 10^3/uL (1.5-5.0); LYMPH % 3.3 % (24.0-44.0); MEAN CORPUSCULAR HEMOGLOBIN 31.3 pg (27.0-33.0); MEAN CORPUSCULAR HGB CONC 35.1 g/dl (32.0-36.5); MEAN CORPUSCULAR VOLUME 89.3 fl (80.0-96.0); MONO # 0.7 10^3/uL (0.0-0.8); MONO % 3.5 % (2.0-8.0); NEUTROPHILS # 18.5 10^3/uL (1.5-8.5); NEUTROPHILS % 92.6 % (36.0-66.0); PLATELET COUNT, AUTOMATED 261 10^3/uL (150-450); RED BLOOD COUNT 4.31 10^6/uL (4.00-5.40)
[2023-06-27 15:45] LABS: LIPASE 27 U/L (12-53)
[2023-06-27 15:47] LABS: ALBUMIN 3.9 G/DL (3.2-5.2); ALKALINE PHOSPHATASE 52 U/L (46-116); ALT/SGPT 13 U/L (7.0-40); AST/SGOT 15 U/L (<34); BILIRUBIN,DIRECT 0.3 MG/DL (<0.4); BILIRUBIN,TOTAL 0.7 MG/DL (0.3-1.2); TOTAL PROTEIN 6.7 G/DL (5.7-8.2)
[2023-06-27] MEDS ORDERED: ISOVUE-370 76% 100ML VIAL As Ordered ONE (16:17)
[2023-06-27 16:34] LABS: APPEARANCE, URINE HAZY (CLEAR); BACTERIA, URINE AUTO NEGATIVE (NEGATIVE); BILIRUBIN, URINE AUTO NEGATIVE (NEGATIVE); BLOOD, URINE BLOOD 2+ (NEGATIVE); COLOR, URINE YELLOW (YELLOW); GLUCOSE, URINE (UA) AUTO NEGATIVE (NEGATIVE); KETONE, URINE AUTO NEGATIVE (NEGATIVE); LEUKOCYTE ESTERASE, URINE AUTO TRACE (NEGATIVE); MUCUS, URINE SMALL (NEGATIVE); NITRITE, URINE AUTO NEGATIVE (NEGATIVE); PROTEIN, URINE AUTO NEGATIVE (NEGATIVE); RBC, URINE AUTO 1 /HPF (0-3); SPECIFIC GRAVITY URINE AUTO 1.019 (1.002-1.035); SQUAMOUS EPITHELIAL CELL UR AU 2 /HPF (0-6); UROBILINOGEN, URINE AUTO 0.2 mg/dL (0.0-2.0); WBC, URINE AUTO 1 /HPF (0-3)
[2023-06-27 16:52] LABS: AMPHETAMINES LEVEL URINE NEGATIVE (NEGATIVE); BARBITURATES URINE NEGATIVE (NEGATIVE); BENZODIAZEPINES URINE NEGATIVE (NEGATIVE); COCAINE METABOLITE URINE NEGATIVE (NEGATIVE); METHADONE URINE NEGATIVE (NEGATIVE); OPIATES URINE NEGATIVE (NEGATIVE)
[2023-06-27 16:53] LABS: PHENCYCLIDINE URINE NEGATIVE (NEGATIVE)
[2023-06-27 16:56] LABS: RSV AMPLIFICATION NEGATIVE (NEGATIVE)
[2023-06-27 16:58] LABS: CANNABINOIDS URINE POSITIVE (NEGATIVE)
[2023-06-27 17:07] LABS: ETHYL ALCOHOL (ETHANOL) 0.009 % (0.000-0.010)
[2023-06-27 17:09] LABS: CK-MB VALUE MASS < 1.0 NG/ML (<3.6); SALICYLATE LEVEL < 3.0 MG/DL (<30)
[2023-06-27 17:10] LABS: CPK CREATINE PHOSPHOKINASE 87 U/L (34-145); MB/CK RELATIVE INDEX 1.14 (< OR =4)
[2023-06-27 18:53] VITALS: BP 97/55; TEMP 99.9; O2SAT 100
[2023-06-27] MEDS ORDERED: ONDA4TAB6 PO (19:08)
== END 2023-06-27 19:09 | disposition home or self-care (01) ==
LOC: M ED 14:06
DX: K52.9 Noninfective gastroenteritis and colitis, unspecified (principal); F12.10 Cannabis abuse, uncomplicated; F17.200 Nicotine dependence, unspecified, uncomplicated; Z79.83 Long term (current) use of bisphosphonates
CPT/HCPCS: 71046; 74177; 80047; 80076; 80143; 80307; 81001; 82077; 82550; 82553; 83690; 84484; 84702; 85025; 87631; 93005; 96374; 99284; J2765; Q9967

== ENCOUNTER 2024-11-22 20:40 | Emergency (ER) | payer MEDICARE, MEDICAID ==
[~2024-11-22] VITALS: Ht 160 cm; Wt 41.8 kg
[~2024-11-22 20:40] MED LIST changes: +ONDA-282 PO; -ONDA4TAB6 PO; -PROC25SU24 PR; +PROC25SU27 PR
[2024-11-22 21:23] LABS: BASO # 0.1 10^3/uL (0.0-0.2); BASO % 0.4 % (0.0-1.0); EOS % 0.3 % (0.0-3.0); HEMATOCRIT 40.6 % (36.0-47.0); HEMOGLOBIN 14.2 g/dl (12.0-15.5); LYMPH # 1.4 10^3/uL (1.5-5.0); LYMPH % 11.5 % (24.0-44.0); MEAN CORPUSCULAR HEMOGLOBIN 31.8 pg (27.0-33.0); MEAN CORPUSCULAR VOLUME 90.8 fl (80.0-96.0); MONO # 0.7 10^3/uL (0.0-0.8); MONO % 5.6 % (2.0-8.0); NEUTROPHILS # 10.1 10^3/uL (1.5-8.5); NEUTROPHILS % 81.8 % (36.0-66.0); PLATELET COUNT, AUTOMATED 284 10^3/uL (150-450); RED BLOOD COUNT 4.47 10^6/uL (4.00-5.40); WHITE BLOOD COUNT 12.4 10^3/uL (4.0-10.0)
[2024-11-22 21:40] LABS: BLOOD UREA NITROGEN 11 MG/DL (9-23); CALCIUM LEVEL 9.2 MG/DL (8.5-10.1); CARBON DIOXIDE LEVEL 26 MMOL/L (20-31); CHLORIDE LEVEL 107 MMOL/L (98-107); CREATININE FOR GFR 0.71 MG/DL (0.55-1.30); GLOMERULAR FILTRATION RATE > 90.0 (>60); GLUCOSE, FASTING 90 MG/DL (60-100); SODIUM LEVEL 140 MMOL/L (136-145)
[2024-11-22 23:14] VITALS: TEMP 97.8
[2024-11-22 23:36] VITALS: BP 103/67
[2024-11-23 00:09] LABS: KETONE, URINE AUTO RFX 1+ mg/dL (NEGATIVE); LEUKOCYTE ESTERASE UR AUTO RFX NEGATIVE (NEGATIVE); MUCUS, URINE RFX LARGE (NEGATIVE); RBC, URINE AUTO RFX TNTC /HPF (0-3); SQUAM EPITHELIAL CELL UR AURFX 4 /HPF (0-6); WBC, URINE AUTO RFX 2 /HPF (0-3)
[2024-11-23 00:11] LABS: NITRITE, URINE AUTO RFX POSITIVE (NEGATIVE)
[2024-11-23 00:17] LABS: HCG, SERUM QUANTITATIVE < 2.6 MIU/ML (<4.2)
[2024-11-23 00:40] VITALS: O2SAT 100
[2024-11-23] MEDS ORDERED: KETO-204 PO (01:23)
[2024-11-23] MEDS: KETOROLAC 60MG 2ML VIAL IM ONE (01:35)
== END 2024-11-23 01:44 | disposition home or self-care (01) ==
LOC: M ED 20:40
DX: M54.50 Low back pain, unspecified (principal); M41.9 Scoliosis, unspecified; J45.909 Unspecified asthma, uncomplicated
CPT/HCPCS: 80048; 81001; 84702; 85025; 96372; 99284; J1885

== ENCOUNTER 2025-05-31 10:20 | Emergency (ER) | payer MEDICARE, MEDICAID ==
[~2025-05-31 10:20] MED LIST changes: +KETO-204 PO; +SULF-7 PO; -SULF1TAB23 PO
[2025-05-31] MEDS: KETOROLAC TROMETHAMINE 10 MG TAB PO ONE (11:28)
[2025-05-31] MEDS ORDERED: IBUP600T42 PO (13:23)
[2025-05-31] MEDS ORDERED: HOME MED LIST COMPLETE! XX SCH (13:50)
[2025-05-31] MEDS: TETANUS/DIPHTH/ACEL. PERTUSSIS 0.5 ML SYR IM.IMMUN ONE (14:10)
[2025-05-31 14:30] VITALS: BP 117/80; TEMP 97.7; O2SAT 100
== END 2025-05-31 14:30 | disposition home or self-care (01) ==
LOC: EDBD 10:20 → M ED 10:20
DX: S60.511A Abrasion of right hand, initial encounter (principal); S70.212A Abrasion, left hip, initial encounter; S00.91XA Abrasion of unspecified part of head, initial encounter; V88.8XXA Person injured in other specified noncollision transport accidents involving motor vehicle, nontraffic, initial encounter; Y92.410 Unspecified street and highway as the place of occurrence of the external cause; Y93.9 Activity, unspecified; Y99.9 Unspecified external cause status